=== PATIENT | female | born 1935 | race Caucasian/White ===

== ENCOUNTER 2020-11-13 12:50 | Outpatient (RCR) | payer MEDICARE, SELFPAY | END 2020-11-13 23:59 | LOC: IMMUN 12:50 | PROVIDERS: PCP Internal Medicine; Referring Provider Family Medicine; Visit Provider Family Medicine | DX: Z23 Encounter for immunization (principal) | CPT/HCPCS: 0011A; 0012A ==

== ENCOUNTER 2021-06-25 11:43 | Observation (INO) | payer MEDICARE, SELFPAY ==
[2021-06-25] VITALS (13 sets, daily range): BP systolic 108–181; BP diastolic 51–104; PULSE 58–99; RESP 16–18; TEMP 36.6–37.1; O2SAT 96–100; BMI 22.7; BMI 22.6
--- NOTE | 2021-06-25 12:06 | RAD_ITS ---
STUDY: X-RAY CHEST REASON FOR EXAM: Female, 85 years old. Syncope TECHNIQUE: Frontal view of the chest COMPARISON: None. FINDINGS: The lungs are clear. There are no pleural effusions. There is no pneumothorax. The heart is normal in size. The visualized osseous structures are within normal limits. RAD/Chest 1 View (Portable) IMPRESSION: No acute thoracic pathology. Electronically Signed: Sung Dunlap MD at 12:36 EDT Tel , Service support ,
--- NOTE | 2021-06-25 12:06 | EKG12_ITS ---
Test Reason : SYNCOPE Blood Pressure : / mmHG Vent. Rate : 065 BPM Atrial Rate : 065 BPM P-R Int : 156 ms QRS Dur : 144 ms QT Int : 462 ms P-R-T Axes : 077 -03 157 degrees QTc Int : 480 ms Sinus rhythm with Premature supraventricular complexes Left bundle branch block Abnormal ECG Confirmed by JOEL JULIAN, SHAKEEL ([id number]), assistant editor ARABELLA WEST ([id number]) on 06/29/2021 8:33:57 AM Referred By: BRIDGETT Confirmed By:NAIDA MALDONADO MD
--- NOTE | 2021-06-25 12:07 | EDS_ITS ---
HPI History of Present Illness Chief Complaint: Syncope Detail of Chief Complaint: Syncope this morning Informant: patient and family Narrative Narrative: Patient presents to the emergency department complaint of syncopal episode occurred this morning. Patient's son is with her and he witnessed the event this morning. Patient apparently was standing when she started feel like her knees were buckling and she fell against the wall and slid down to the ground. Son believes she may have been unconscious for a few seconds and then came to pretty quickly. Patient states that she is passed out 3 times in the last month. She complains of feeling dizzy oftentimes in the morning with standing. They called her primary care physician and they were given a be evaluated by somebody covering for her physician later today but then they blanca led back and told her to come to the ER to get evaluated. Patient denies any chest pain or shortness of breath. She denies recent illness. She denies headaches. She does have history of hypertension as well as history of IBS. Patient denies any blood in her stool or black tarry stools. Prior similar symptoms: Yes PFSH PFSH Medical History (Updated 06/25/21 @ 14:[address] Sam Harris, DO) HTN (hypertension) Hypothyroid Home Medications escitalopram oxalate 5 mg PO DAILY 06/25/21 [History Last Taken Unknown] labetalol 200 mg PO BID 06/25/21 [History Last Taken Unknown] levothyroxine [Synthroid] 75 mcg PO DAILY 06/25/21 [History Last Taken Unknown] pantoprazole 20 mg PO DAILY 06/25/21 [History Last Taken Unknown] spironolactone 25 mg PO DAILY 06/25/21 [History Last Taken Unknown] Allergy/AdvReac Type Severity Reaction Status Date / Time No Known Allergies Allergy Verified 06/25/21 11:45 Surgical History (Updated 06/25/21 @ 12:19 by Yoly Barajas) H/O partial thyroidectomy History of appendectomy History of cholecystectomy Social History Smoking Status: Never smoker ROS ROS ED ROS Narrative Syncope and dizziness Constitutional Constitutional ED: Reports systems reviewed and no addt'l complaints, except as documented; Denies body ache(s), change in weight or chills Eyes Eyes: Denies acute decrease in peripheral vision, change in vision, double vision or loss of vision ENT ENT ED: Reports none; Denies ear pain, lip swelling, loss taste/smell, neck pain, otalgia or sore throat Cardiovascular Cardiovascular: Reports none; Denies abdominal pain, chest pain with activity, leg edema, lightheadedness, palpitations, rapid heart rate or syncope Respiratory/Chest Respiratory/Chest: Reports none; Denies change in mental status, dry cough, dyspnea, hemoptysis, shortness of breath at rest or shortness of breath with exertion Gastrointestinal Gastrointestinal: Reports none; Denies abdominal pain, change in stool character, diarrhea, hematemesis, hematochezia, melena, rectal bleeding or vomiting Genitourinary Genitourinary ED: Reports none; Denies abdominal discomfort, anuria, dysuria, genital pain or polyuria Musculoskeletal Musculoskeletal: Reports none; Denies arthralgias, back pain, difficulty walking, extremity pain, muscle weakness or myalgias Integumentary Reports none; Denies abscess or rash Neurologic Neurologic: Reports none and other; Denies abnormal gait, confusion, focal weakness, frequent falls, headache(s), loss of vision, numbness, paresthesias, radicular pain, vertigo or weakness Psychiatric Psychiatric: Reports systems reviewed and no addt'l complaints, except as documented and none; Denies behavioral changes, confusion, difficulty concentrating, hallucinations, suicidal ideation, tactile hallucinations or visual hallucinations Endocrine Endocrinology: Denies none, cold intolerance, excessive sweating, fatigue or heat intolerance Hematologic/Lymphatic Hematologic/Lymphatic: Reports none; Denies anemia, easy bleeding or easy bruising Allergic/Immunologic Allergic/Immunologic ED: Denies as per HPI, none, lip swelling, mouth swelling, throat swelling, tongue swelling or hives EXAM Physical Exam Const Vital Signs: 06/25/21 11:43 06/25/21 12:18 06/25/21 12:54 Temperature 97.8 F Temperature Source Temporal Pulse Rate 59 L Pulse Rate [Lying] 65 Pulse Rate [Sitting] 65 Pulse Rate [Standing] 68 Respiratory Rate 16 Respiratory Effort Normal Non-Labored Respiratory Pattern Normal Blood Pressure 149/68 H Blood Pressure [Lying] 145/51 H Blood Pressure [Sitting] 141/54 H Blood Pressure [Standing] 108/82 H Blood Pressure Mean 95 Blood Pressure Mean [Lying] 82 Blood Pressure Mean [Sitting] 83 Blood Pressure Mean [Standing] 90 Pulse Ox 100 Oxygen Delivery Method Room Air 06/25/21 13:14 Temperature Temperature Source Pulse Rate 86 Pulse Rate [Lying] Pulse Rate [Sitting] Pulse Rate [Standing] Respiratory Rate 16 Respiratory Effort Respiratory Pattern Blood Pressure 108/82 H Blood Pressure [Lying] Blood Pressure [Sitting] Blood Pressure [Standing] Blood Pressure Mean 90 Blood Pressure Mean [Lying] Blood Pressure Mean [Sitting] Blood Pressure Mean [Standing] Pulse Ox Oxygen Delivery Method Positive well nourished and well developed General Appearance ED: well developed and NAD HEENT Reports TM's clear and moist mucous membranes normocephalic and atraumatic; Negative for trauma or tenderness Tympanic Membrane ED: Yes TM's clear Eyes PERRL and EOMs intact bilaterally General Eye ED: Negative for pale conjunctiva or scleral icterus Neck no lymphadenopathy, supple and no JVD General: Negative for tenderness Chest Wall inspection of chest normal and palpation of chest normal Chest: Negative for tenderness Resp normal respiratory effort and clear to auscultation bilaterally Effort and Inspection: Negative for respiratory distress or pain with movement Auscultation: Negative for rhonchi, wheezes or diminished lung sounds Cardio regular rate, regular rhythm, S1 normal heart sound, S2 normal heart sound and no murmurs Peripheral Pulses: pulses 2+ throughout GI normal to inspection, nondistended, normoactive bowel sounds, soft to palpation, non-tender, non-distended and no masses Back/Spine no CVA tenderness and no thoracic nor lumbar tenderness Extremity normal to inspection General Extremety ED: Negative for edema General Extremity: Negative for edema Neuro oriented x3, CN's II-XII intact bilaterally, no sensory deficits noted and gait normal Sensorium / Orientation: awake, alert, oriented to person, oriented to place and oriented to time Motor Exam: strength 5/5 throughout and strength abnormal Psych mental status grossly normal Skin no rashes or lesions noted and no wounds MDM MDM MDM Narrative Medical decision making narrative: Patient noted to have signs of UTI on exam. Urine culture will be sent. Patient was positive when orthostatic pressures were checked with a drop in her systolic of over 40 points. IV line established and patient was given normal saline. Case will be discussed with hospitalist evaluate patient for admission for diagnosis of orthostatic syncope and UTI Lab Data Attestation: I reviewed the patient's lab results. Labs: Laboratory Results - last 24 hr 06/25/21 06/25/21 06/25/21 12:00 12:00 13:11 WBC 11.7 H RBC 3.87 L Hgb 12.3 Hct 37.3 MCV 96.4 MCH 31.8 MCHC 33.0 RDW Std Deviation 47.4 H RDW Coeff of Shadia 13.3 Plt Count 254 MPV 10.2 Immature Gran % (Auto) 0.700 Neut % (Auto) 81.0 H Lymph % (Auto) 11.5 L [place] % (Auto) 6.0 Eos % (Auto) 0.4 Baso % (Auto) 0.4 Absolute Neuts (auto) 9.5 H Absolute Lymphs (auto) 1.34 Nucleated RBC % 0 Sodium 135 L Potassium 4.0 Chloride 100 Carbon Dioxide 30.0 Anion Gap 5 BUN 27 H Creatinine 1.10 H Estim Creat Clear Calc 28.73 Est GFR (MDRD) Af Amer 61 Est GFR (MDRD) Non-Af 50 L BUN/Creatinine Ratio 24.5 H Glucose 106 Calcium 9.7 Troponin I High Sens 13 Urine Color Yellow Urine Clarity Cloudy Urine pH 5.0 Ur Specific [place] 1.015 Urine Protein 15 H Urine Glucose (UA) Normal Urine Ketones Negative Urine Occult Blood 10 H Urine Nitrite Positive H Urine Bilirubin Negative Urine Urobilinogen Normal Ur Leukocyte Esterase 500 H Urine RBC 0-5 SEEN Urine WBC 10-25 SEEN Ur Squamous Epith Cells 0-5 SEEN Urine Bacteria 4+ Urine Mucus 0 SEEN Radiography Diagnostic Testing: Radiology Impression Chest X-Ray 06/25/21 12:06 IMPRESSION: No acute thoracic pathology. Electronically Signed: Sung Dunlap MD at 12:36 EDT Tel , Service support , EKG Initial EKG: Attestation: I personally reviewed and interpreted this EKG as follows: Comments: Sinus rhythm with a ventricular rate of 65 bpm with a left bundle branch block and occasional PACs. Discharge Plan Triage Chief Complaint: Syncope ED Provider: Sam Harris Dx/Rx/DC Orders Clinical Impression: Syncope, Acute UTI Prescriptions: No Action labetalol 200 mg tablet 200 mg PO BID RF: 0 spironolactone 25 mg tablet 25 mg PO DAILY RF: 0 pantoprazole 20 mg tablet,delayed release (DR/EC) 20 mg PO DAILY RF: 0 levothyroxine [Synthroid] 75 mcg tablet 75 mcg PO DAILY RF: 0 escitalopram oxalate 5 mg tablet 5 mg PO DAILY RF: 0 Primary Care Provider: Deanna Good Referrals: Deanna Good MD [Primary Care Provider] - Disposition Disposition: Acute Care Hospital [facility]
[2021-06-25 12:13] LABS: Absolute Lymphocyte Count 1.34 X10^3/uL (0.83-4.51); Absolute Neutrophil Count 9.5 X10^3/uL (2.0-7.7); Basophil# 0.05 X10^3/uL; Basophil% 0.4 % (0-1); Eosinophil# 0.05 X10^3/uL; Eosinophils% 0.4 % (0-5); Hematocrit 37.3 % (37-47); Hemoglobin 12.3 g/dL (12.0-15.0); Lymphocyte # 1.34 X10^3/ul (0.83-4.51); Lymphocyte % 11.5 % (19-41); Mean Corpuscular Hgb 31.8 pg (27.0-32.0); Mean Corpuscular Volume 96.4 fL (81-99); Mean Platelet Vol. 10.2 fl (6.2-12.0); NRBC Flagged by Analyzer 0 % (0-5); Neutrophil # 9.46 X10^3/uL (2.7-7.7); Platelet Count 254 K/mm3 (150-450); RBC Distribution Width CV 13.3 % (11.6-14.6); RBC Distribution Width SD 47.4 fl (35.1-43.9); Red Blood Count 3.87 M/mm3 (4.2-5.4); White Blood Count 11.7 K/mm3 (4.4-11.0)
[2021-06-25 12:39] LABS: Anion Gap 5 (5-15); BUN 27 mg/dL (7-18); BUN/Creat Ratio 24.5 RATIO (10-20); Calcium,Total 9.7 mg/dL (8.5-10.1); Chloride 100 mmol/L (98-107); EST Glomerular Filtration Rate 50 mL/min (>60); Est Glom Filt Rate - Afr Amer 61 mL/min (>60); Estimated Creatinine Clearance 28.73 ml/min; Glucose 106 mg/dL (74-106); Sodium Level 135 mmol/L (136-145); Troponin-I HS 13 pg/mL (3.0-54.0)
[2021-06-25] MEDS: 0.9% Normal Saline 1,000 ML 150 ML IV ×3 (13:14→21:00)
[2021-06-25 13:18] LABS: Color, Urine Yellow (Yellow); Glucose, Dipstick Normal (Normal); Ketone-Dipstick Negative (Negative); Leukocyte Esterase-Dipstick 500 /ul (Negative); Mucous, Urine 0 SEEN /hpf (<or=2+); Nitrite-Dipstick Positive (Negative); Occult Blood-Urine 10 /ul (Negative); Protein-Dipstick 15 mg/dl (Negative); Specific Gravity, Urine 1.015 (1.002-1.030); Urine Bilirubin Dipstick Negative (Negative); Urine Clarity Cloudy (Clear); Urine Urobilinogen Normal (Normal)
[2021-06-25 13:25] LABS: Bacteria 4+ /hpf (None Seen); Red Blood Cells-Urine 0-5 SEEN /hpf (0-5); Squamous Epithelial Cells - UA 0-5 SEEN /hpf (5-10); White Blood Cells 10-25 SEEN /hpf (0-5)
[2021-06-25] MEDS: Ceftriaxone 1 GM/50 ML BAG IV (14:51)
--- NOTE | 2021-06-25 14:52 | HP.PCM.HOS_ITS ---
HPI - General HPI Narrative CHARBEL DELVALLE, is a 85 F who presented to the emergency department [facility] on 06/25/2021 with the chief complaint of syncope. She presents to the emergency department with her son. He evidently witnessed the event this morning. She was apparently standing when she started to feel like her knees were buckling and fell against the wall and slid down to the ground. The son believes that she may have been unconscious for a few seconds and then came to back to her baseline fairly quickly. She states she has irritable bowel syndrome and did feel as if a bowel movement was coming on when this event occurred. She has had significant weight loss in the past year and has had an extensive GI work-up including scopes and no etiology for this has been found at this time. She was recently started on Lexapro as there was some concern that maybe her anxiety was contributing to her decreased p.o. intake and weight loss. She has been having lightheadedness on and off at least 3 times per week for approximately the past month. She follows with career education teacher and [facility] but has not mentioned this to them. Her last cardiology follow-up was approximately 2 months ago when she was having no symptoms. The only medication change that has been recently made is the addition of the escitalopram. She currently is feeling well. She does have issues with urinary incontinence and has having issues opening containers for water. They do have food brought to her house. She denies any concurrent symptoms when she had her episode today including chest pain, diaphoresis, nausea/vomiting or shortness of breath. She currently is back to baseline and feels well. She was orthostatic positive in the emergency department from sitting to standing with regards to her blood pressure. Her vital signs were overall unremarkable. Her CBC shows a mild leukocytosis with a white count of 11.7 and a left shift but is otherwise within normal limits. Her BMP shows mild hyponatremia with a sodium of 135, slightly elevated BUN and creatinine at 27 and 1.10 respectively (baseline is unclear), a high-sensitivity troponin was obtained and was normal. Her EKG shows a chronic left bundle branch block but no ST-T wave changes. Her UA is suspicious for a UTI with positive nitrites, leuk esterase, white cells and 4+ bacteria. She was initiated on IV fluids and ceftriaxone in the emergency department after urine culture was sent and request for admission was made. She will be admitted to [facility] for further work-up. [facility] Medical History (Updated 06/25/21 @ 15:[address] Mouna Cano DO) Anxiety HTN (hypertension) Hypothyroid Home Medications escitalopram oxalate 5 mg PO DAILY 06/25/21 [History Last Taken Unknown] labetalol 200 mg PO BID 06/25/21 [History Last Taken Unknown] levothyroxine [Synthroid] 75 mcg PO DAILY 06/25/21 [History Last Taken Unknown] pantoprazole 20 mg PO DAILY 06/25/21 [History Last Taken Unknown] spironolactone 25 mg PO DAILY 06/25/21 [History Last Taken Unknown] Allergy/AdvReac Type Severity Reaction Status Date / Time No Known Allergies Allergy Verified 06/25/21 11:45 Family History (Updated 06/25/21 @ 14:[address] Mouna Cano DO) Other Heart disease Hypertension Surgical History H/O partial thyroidectomy History of appendectomy History of cholecystectomy Social History Smoking Status: Never smoker ROS Constitutional Constitutional: Reports anorexia and change in weight; Denies chills, fatigue, fever(s), malaise, night sweats, weakness or other Eyes Eyes: Denies blurry vision, change in eye color, change in vision, discharge f rom eye(s), double vision, erythema, eye pain, loss of vision or other ENT HEENT: Denies abnormal hearing, dysphagia, ear pain, epistaxis, headache(s), hearing loss, nasal congestion, nasal discharge, post nasal drip, sinus pre ssure, sore throat or other Cardiovascular Cardiovascular: Reports lightheadedness and syncope; Denies chest pain, claudication, dyspnea on exertion, edema, orthopnea, palpitations, paroxysmal nocturnal dyspnea, rapid heart rate or other Respiratory/Chest Respiratory/Chest: Denies cough, dyspnea, excessive phlegm production, hem optysis, productive cough, shortness of breath at rest, shortness of breath with exertion, wheezing or other Gastrointestinal Gastrointestinal: Reports abdominal pain, constipation and diarrhea; Denies c [place] ground emesis, dyspepsia, hematemesis, hematochezia, loose stools, melena, nausea, vomiting or other Genitourinary Genitourinary: Reports urinary frequency, urinary incontinence and urinary urgency; Denies burning urination, difficulty urinating, dysuria, hematuria, nocturia, urinary hesitancy or other Musculoskeletal Musculoskeletal: Denies arthralgias, back pain, joint pain, joint stiffness, joint swelling, myalgias, neck pain or other Neurologic Neurologic: Reports syncope; Denies abnormal gait, abnormal speech, confusion, disequilibrium, dizziness, focal weakness, headache(s), numbness, paresthesias, seizure-like activity, seizures, tingling, tremor(s) or other Psychiatric Psychiatric: Reports anxiety; Denies depression, homicidal ideation, suicidal ideation or other Endocrine Endocrinology: Denies change in body appearance, cold intolerance, excessive sweating, heat intolerance, polydipsia, polyuria or other Hematologic/Lymphatic Hematologic/Lymphatic: Denies anemia, easy bleeding, easy bruising, lymphadenopathy or other Allergic/Immunologic Allergic/Immunologic: Denies rhinitis, hives, eczemia, asthma or other Vital Signs Vital Signs Vital Signs: 06/25/21 11:43 06/25/21 12:18 06/25/21 12:54 Temperature 97.8 F Temperature Source Temporal Pulse Rate 59 L Pulse Rate [Lying] 65 Pulse Rate [Sitting] 65 Pulse Rate [Standing] 68 Respiratory Rate 16 Respiratory Effort Normal Non-Labored Respiratory Pattern Normal Blood Pressure 149/68 H Blood Pressure [Lying] 145/51 H Blood Pressure [Sitting] 141/54 H Blood Pressure [Standing] 108/82 H Blood Pressure Mean 95 Blood Pressure Mean [Lying] 82 Blood Pressure Mean [Sitting] 83 Blood Pressure Mean [Standing] 90 Pulse Ox 100 Oxygen Delivery Method Room Air 06/25/21 13:14 Temperature Temperature Source Pulse Rate 86 Pulse Rate [Lying] Pulse Rate [Sitting] Pulse Rate [Standing] Respiratory Rate 16 Respiratory Effort Respiratory Pattern Blood Pressure 108/82 H Blood Pressure [Lying] Blood Pressure [Sitting] Blood Pressure [Standing] Blood Pressure Mean 90 Blood Pressure Mean [Lying] Blood Pressure Mean [Sitting] Blood Pressure Mean [Standing] Pulse Ox Oxygen Delivery Method Weight Weight: 54.6 kg Body Mass Index (BMI) 22.7 Physical Exam Const alert, oriented x3, no apparent distress and average body habitus Constitutional Narrative: Thin elderly white female sitting up in bed, son at bedside, patient nontoxic, no acute distress, seems in good spirits and appropriately interactive General Appearance: cooperative HEENT normocephalic, head/scalp atraumatic, moist oral mucous membranes and oropharynx normal; Negative for dentition normal HEENT Narrative: Moderately [place], no thrush, Mallampati 2, dentures in place Mouth: oral and palatal mucosa normal Eyes PERRL, EOMs intact bilaterally and conjunctivae normal Eyes Narrative: No scleral icterus or injection Neck no lymphadenopathy, supple, no JVD and no carotid bruits Neck Narrative: Trachea midline no thyroid enlargement Resp normal respiratory effort, no retractions, no use of accessory muscles and clear to auscultation bilaterally Auscultation: Negative for crackles, rales, rhonchi or wheezes Cardio regular rate, regular rhythm, S1 normal heart sound, S2 normal heart sound, no murmurs, no rub, no gallops, no clicks and no JVD GI normal to inspection, nondistended, normoactive bowel sounds, soft to palpation, non-tender and non-distended; Negative for hepatosplenomegaly Extremity no clubbing, cyanosis or edema Extremity Narrative: Arthritic changes noted at joints Peripheral Pulses: Yes pulses 2+ throughout Skin no rashes or lesions noted, no wounds, skin turgor normal, no jaundice, no petechiae and no mottling Neuro oriented x3, CN's II-XII intact bilaterally, moves all extremities and no focal motor deficits Neuro Narrative: Mild generalized weakness, reflexes 2+ upper and lower extremity bilaterally Sensorium / Orientation: alert, oriented to person, oriented to place and oriented to time Speech: speech normal Psych affect normal Results Lab / Micro Data Attestation: I reviewed the patient's lab results. Result Diagrams: 06/25/21 12:00 06/25/21 12:00 Labs: Laboratory Results - last 24 hr 06/25/21 12:00: WBC 11.7 H, RBC 3.87 L, Hgb 12.3, Hct 37.3, MCV 96.4, MCH 31.8, MCHC 33.0, RDW Std Deviation 47.4 H, RDW Coeff of Shadia 13.3, Plt Count 254, MPV 10.2, Immature Gran % (Auto) 0.700, Neut % (Auto) 81.0 H, Lymph % (Auto) 11.5 L, [place] % (Auto) 6.0, Eos % (Auto) 0.4, Baso % (Auto) 0.4, Absolute Neuts (auto) 9.5 H, Absolute Lymphs (auto) 1.34, Nucleated RBC % 0 06/25/21 12:00: Sodium 135 L, Potassium 4.0, Chloride 100, Carbon Dioxide 30.0, Anion Gap 5, BUN 27 H, Creatinine 1.10 H, Estim Creat Clear Calc 28.73, Est GFR (MDRD) Af Amer 61, Est GFR (MDRD) Non-Af 50 L, BUN/Creatinine Ratio 24.5 H, Glucose 106, Calcium 9.7, Troponin I High Sens 13 06/25/21 13:11: Urine Color Yellow, Urine Clarity Cloudy, Urine pH 5.0, Ur Specific [place] 1.015, Urine Protein 15 H, Urine Glucose (UA) Normal, Urine Ketones Negative, Urine Occult Blood 10 H, Urine Nitrite Positive H, Urine Bilirubin Negative, Urine Urobilinogen Normal, Ur Leukocyte Esterase 500 H, Urine RBC 0-5 SEEN, Urine WBC 10-25 SEEN, Ur Squamous Epith Cells 0-5 SEEN, Urine Bacteria 4+, Urine Mucus 0 SEEN Radiology Impression Chest X-Ray 06/25/21 12:06 IMPRESSION: No acute thoracic pathology. Electronically Signed: Sung Dunlap MD at 12:36 EDT Tel , Service support , Assessment & Plan Assessment/Plan (1) Syncope: (2) Acute UTI: (3) JUS (acute kidney injury): (4) Dehydration: (5) Hyponatremia: PLAN: Acute syncope -Patient has been experiencing lightheadedness and has had falls but is unclear if her previous falls were associated with syncopal episodes as they were not witnessed -Continue telemetry -Cycle cardiac enzymes -Check carotid Dopplers -No bruit on exam -Check echocardiogram -Check TSH -IV fluids -We will hold antihypertensives at this time -Repeat a.m. orthostatic vitals--> positive on admission from sitting to standing Acute urinary tract infection -UA is suspicious for UTI -Culture pending -Ceftriaxone started in the emergency department will continue on the medical floor -Patient does follow with urology as an outpatient for prolapsed bladder Mild hyponatremia -Suspect hypovolemic hyponatremia -Repeat in a.m. -Should respond to IV fluids JUS -Baseline creatinine is unknown at this time -Repeat BMP in a.m. -IV fluids Suspected severe malnutrition -Consult dietitian -Patient has had extensive GI work-up with no etiology found to explain weight loss at this time -Recently started on antidepressant -Could consider utilization of Remeron with Lexapro -Ensure 4 times daily-chocolate IBS -As needed Bentyl -Follow-up with outpatient GI -Patient follows in [place] Hypertension -Hold antihypertensives with labile blood pressures -As needed labetalol available -Trend blood pressures Hypothyroidism -Check TSH -Continue Synthroid Depression/anxiety -Continue home Lexapro DVT prophylaxis -Lovenox -SCDs CODE STATUS -Full code after discussion with patient and son in the emergency department Charges/Coding Visit Charges Inpatient E&M: 28553 Init Hosp L3
--- NOTE | 2021-06-25 15:28 | ECHOD_ITS ---
Reason For Study: SYNCOPE/NEAR SYNCOPE Procedure This was a 2D Doppler, Color Flow transthoracic echocardiogram. The study was technically difficult. Exam performed in department. Left Ventricle Normal LV size. The estimated ejection fraction is 55 %. Unable to assess diastolic dysfunction. Right Ventricle Normal RV size. Normal systolic function. Atria The left atrium is mildly enlarged. Normal right atrium. No doppler evidence for ASD. Mitral Valve There is moderate to severe mitral annular calcification. There is no mitral valve stenosis. No mitral valve insufficiency. Tricuspid Valve There is no tricuspid stenosis. No tricuspid valve insufficiency. Unable to estimate RV systolic pressure due to insufficient tricuspid regurgitant envelope. Aortic Valve Trisinus/trileaflet aortic valve. There is no aortic stenosis. Trivial aortic valve insufficiency. Pulmonic Valve There is no pulmonic valvular stenosis. No pulmonic valve insufficiency. Great Vessels Normal aortic root. Pericardium/Pleural No pericardial effusion. MMode/2D Measurements & Calculations LVIDd: 5.0 cm IVSd: 1.1 cm Ao root diam: 3.3 cm LVIDs: 3.9 cm LVPWd: 1.1 cm RVDd: 3.2 cm FS: 22.0 % LAV(MOD-bp): 57.2 ml LA A4 area: 17.5 cm2 LA dimension(2D): 3.3 cm LAV(MOD-bp) Indexed: 37.6 ml/m2 LAV(MOD-sp2): 53.1 ml LAV(MOD-sp4): 53.1 ml RA A4 area: 15.8 cm2 Time Measurements MV dec time: 0.23 sec Doppler Measurements & Calculations MV E max kushal: 73.2 cm/sec Lat Peak E' Kushal: 5.8 cm/sec Med Peak E' Kushal: 3.8 cm/sec MV A max kushal: 123.3 cm/sec E/E' lat: 12.6 E/E' med: 19.2 MV E/A: 0.59 Ao V2 max: 137.7 cm/sec LV V1 max: 120.4 cm/sec PA V2 max: 125.8 cm/sec Ao max P.6 mmHg LV V1 max P.8 mmHg ECHO/Echo Complete Interpretation Summary The estimated ejection fraction is 55 %. Unable to assess diastolic dysfunction. The left atrium is mildly enlarged. Trivial aortic valve insufficiency. Ordering Physician: Mouna Cnao Referring Physician: Deanna Good Performed By: Leila Rodriguez RDCS, RVT
[2021-06-25 16:30] LABS: Troponin-I HS 13 pg/mL (3.0-54.0)
[2021-06-25] MEDS: Labetalol (Prefilled) 20 MG/4 ML IV (18:49)
[2021-06-25 20:27] LABS: Troponin-I HS 27 pg/mL (3.0-54.0)
--- NOTE | 2021-06-25 20:45 | PCS.PANDOC ---
PANDEMIC DOCUMENTATION INITIATED: Date: 06/07/2021 Time: 190
[2021-06-25] MEDS: Sucralfate 1 GM Tablet PO (20:57)
[2021-06-25] MEDS: Dicyclomine 10 MG Capsule PO (21:09)
[2021-06-25] MEDS: MELATONIN 3 MG TABLET PO (21:09)
[2021-06-26] VITALS (13 sets, daily range): BP systolic 164–187; BP diastolic 65–78; PULSE 61–82; RESP 16; TEMP 36.3–36.8; O2SAT 97–99
[2021-06-26] MEDS: 0.9% Normal Saline 1,000 ML 150 ML IV (03:28)
[2021-06-26] MEDS: Labetalol (Prefilled) 20 MG/4 ML IV ×2 (03:43→21:02)
[2021-06-26] MEDS: Levothyroxine 75 MCG Tablet PO (05:26)
[2021-06-26 06:17] LABS: Absolute Lymphocyte Count 1.65 X10^3/uL (0.83-4.51); Absolute Neutrophil Count 5.6 X10^3/uL (2.0-7.7); Basophil# 0.04 X10^3/uL; Basophil% 0.5 % (0-1); Eosinophils% 1.2 % (0-5); Hematocrit 32.7 % (37-47); Hemoglobin 10.8 g/dL (12.0-15.0); Lymphocyte # 1.65 X10^3/ul (0.83-4.51); Lymphocyte % 19.8 % (19-41); Mean Corpuscular Hgb 31.8 pg (27.0-32.0); Mean Corpuscular Volume 96.2 fL (81-99); Mean Platelet Vol. 10.3 fl (6.2-12.0); Monocyte# 0.94 X10^3/uL; Monocyte% 11.3 % (0-10); NRBC Flagged by Analyzer 0 % (0-5); Neutrophil # 5.58 X10^3/uL (2.7-7.7); Neutrophil % 66.8 % (47-70); Platelet Count 202 K/mm3 (150-450); RBC Distribution Width CV 13.4 % (11.6-14.6); RBC Distribution Width SD 47.4 fl (35.1-43.9); White Blood Count 8.3 K/mm3 (4.4-11.0)
[2021-06-26 08:14] LABS: AST(SGOT) 12 U/L (15-37); Alanine Aminotransfer ALT/SGPT 18 U/L (13-56); Albumin, Serum 2.5 g/dL (3.2-5.0); Alkaline Phosphatase 47 U/L (45-117); Anion Gap 3 (5-15); BUN 19 mg/dL (7-18); Calcium,Total 8.8 mg/dL (8.5-10.1); Chloride 108 mmol/L (98-107); Creatinine, Serum 0.76 mg/dL (0.55-1.02); EST Glomerular Filtration Rate 77 mL/min (>60); Est Glom Filt Rate - Afr Amer 93 mL/min (>60); Globulin 2.6 g/dL (2.2-4.2); Glucose 98 mg/dL (74-106); Magnesium 1.5 mg/dL (1.6-2.6); Phosphorus 2.9 mg/dL (2.5-4.9); Potassium 3.8 mmol/L (3.5-5.1); Protein, Total 5.1 g/dL (6.4-8.2); Sodium Level 137 mmol/L (136-145); Thyroid Stim Hormone (TSH) 1.04 uIU/mL (0.358-3.74)
[2021-06-26] MEDS: Ceftriaxone 1 GM/50 ML BAG IV (10:20)
[2021-06-26] MEDS: Escitalopram Oxalate 10 MG Tablet 5 MG PO (10:36)
[2021-06-26] MEDS: Enoxaparin 30 MG/0.3 ML Syringe SC (10:36)
[2021-06-26] MEDS: Pantoprazole Sodium 20 MG Tablet PO (10:38)
[2021-06-26] MEDS: Magnesium Chloride 64 MG Delay Rel.Tablet 128 MG PO (10:43)
--- NOTE | 2021-06-26 11:30 | CASEMGMT ---
IRENE MAY Face to Face with patient for initial transition planning/care coordination assessment. RN CM introduced self and role at [facility]. Patient lying in bed, alert and oriented, son at bedside. Patient willing to participate in assessment and is able to answer all questions appropriately. Care providers, pharmacy, and demographics verified. Patient wishes to discharge home and agreeable to HHC at discharge. Patient provided with list of [facility] agencies to review. Patient states he has no further needs or concerns at this time. CM to follow for discharge planning needs that may arise. PCP: Latisha Specialists:SIGIFREDO Alvarado; Tiana, scaffold worker; Wade, DRIFT MINER Preferred Pharmacy: [facility] Insurance: [employer] Prescription Benefit: yes Living Will/HPOA: monika Riley HPOA LNOK: monica Living Arrangements: Patient lives alone in a 2 story home. Patient states she is independent and able to ambulate the stairs. Transportation: self/son DME/HHC: Patient states she has medical alert and grab bars at home. Patient refuses walker at discharge. Patient also provided list of private duty aides. Disposition Plan: Patient to discharge home with HHC, family support, and follow-up plans in place. Yoly ESPOSITO, RN, CM
--- NOTE | 2021-06-26 11:37 | PN.HOSP_ITS ---
Documented by User: Tremayne OCONNOR 06/26/21 11:59 Subjective Subjective Patient is an 85-year-old female comfortably resting in bed, alert and orient x3. Patient reports some left lower quadrant abdominal pain, however denies any chest pain, shortness of breath or further syncopal episodes since admission. Objective Data Objective Data Vital Signs: Vital Signs Temp Pulse Resp BP Pulse Ox 97.3 F L 82 16 186/68 H 98 06/26/21 09:51 06/26/21 09:51 06/26/21 09:51 06/26/21 09:51 06/26/21 09:51 Oxygen Delivery Method Room Air Weight: 119 lb 11.376 oz Body Mass Index (BMI) 22.6 Intake & Output: Intake and Output for Last 24 Hours 06/24/21 06/25/21 06/26/21 23:59 23:59 23:59 Intake Total 1515 / 1515 2135 / 2135 Balance 1515 / 1515 2135 / 2135 Lab / Micro Data Result Diagrams: 06/26/21 06:03 06/26/21 06:03 Labs: Laboratory Results - last 24 hr 06/25/21 12:00: WBC 11.7 H, RBC 3.87 L, Hgb 12.3, Hct 37.3, MCV 96.4, MCH 31.8, MCHC 33.0, RDW Std Deviation 47.4 H, RDW Coeff of Shadia 13.3, Plt Count 254, MPV 10.2, Immature Gran % (Auto) 0.700, Neut % (Auto) 81.0 H, Lymph % (Auto) 11.5 L, [place] % (Auto) 6.0, Eos % (Auto) 0.4, Baso % (Auto) 0.4, Absolute Neuts (auto) 9.5 H, Absolute Lymphs (auto) 1.34, Nucleated RBC % 0 06/25/21 12:00: Sodium 135 L, Potassium 4.0, Chloride 100, Carbon Dioxide 30.0, Anion Gap 5, BUN 27 H, Creatinine 1.10 H, Estim Creat Clear Calc 28.73, Est GFR (MDRD) Af Amer 61, Est GFR (MDRD) Non-Af 50 L, BUN/Creatinine Ratio 24.5 H, Glucose 106, Calcium 9.7, Troponin I High Sens 13 06/25/21 13:11: Urine Color Yellow, Urine Clarity Cloudy, Urine pH 5.0, Ur Specific [place] 1.015, Urine Protein 15 H, Urine Glucose (UA) Normal, Urine Ketones Negative, Urine Occult Blood 10 H, Urine Nitrite Positive H, Urine Bilirubin Negative, Urine Urobilinogen Normal, Ur Leukocyte Esterase 500 H, Urine RBC 0-5 SEEN, Urine WBC 10-25 SEEN, Ur Squamous Epith Cells 0-5 SEEN, Urine Bacteria 4+, Urine Mucus 0 SEEN 06/25/21 15:54: Troponin I High Sens 13 06/25/21 20:02: Troponin I High Sens 27 06/26/21 06:03: WBC 8.3, RBC 3.40 L, Hgb 10.8 L, Hct 32.7 L, MCV 96.2, MCH 31.8, MCHC 33.0, RDW Std Deviation 47.4 H, RDW Coeff of Shadia 13.4, Plt Count 202, MPV 10.3, Immature Gran % (Auto) 0.400, Neut % (Auto) 66.8, Lymph % (Auto) 19.8, [place] % (Auto) 11.3 H, Eos % (Auto) 1.2, Baso % (Auto) 0.5, Absolute Neuts (auto) 5.6, Absolute Lymphs (auto) 1.65, Nucleated RBC % 0 06/26/21 06:03: Sodium 137, Potassium 3.8, Chloride 108 H, Carbon Dioxide 26.0, Anion Gap 3 L, BUN 19 H, Creatinine 0.76, Estim Creat Clear Calc 31.60, Est GFR (MDRD) Af Amer 93, Est GFR (MDRD) Non-Af 77, BUN/Creatinine Ratio 25.0 H, Glucose 98, Calcium 8.8, Phosphorus 2.9, Magnesium 1.5 L, Total Bilirubin 0.50, AST 12 L, ALT 18, Alkaline Phosphatase 47, Total Protein 5.1 L, Albumin 2.5 L, Globulin 2.6, Albumin/Globulin Ratio 1.0, TSH 1.04 Radiography Diagnostic Testing: Radiology Impression Chest X-Ray 06/25/21 12:06 IMPRESSION: No acute thoracic pathology. Electronically Signed: Sung Dunlap MD at 12:36 EDT Tel , Service support , Physical Exam Const alert, oriented x3 and no apparent distress HEENT head/scalp atraumatic and moist oral mucous membranes Head and Scalp: normocephalic Eyes PERRL, EOMs intact bilaterally and conjunctivae normal Neck no lymphadenopathy, supple and no JVD Resp normal respiratory effort, no retractions, no use of accessory muscles and clear to auscultation bilaterally Cardio regular rate, regular rhythm, no murmurs and no JVD GI soft to palpation GI Narrative: Pain to palpation about the left lower abdominal quadrant Extremity normal to inspection, full ROM and no clubbing, cyanosis or edema Skin no rashes or lesions noted, no wounds, skin turgor normal and no jaundice Neuro CN's II-XII intact bilaterally Psych affect normal Assessment & Plan Assessment/Plan (1) Acute UTI: (2) Syncope: (3) JUS (acute kidney injury): PLAN: Day 2 Discharge planning: Patient likely to discharge home, case management and social work following. 1) acute cystitis Abnormal UA on admission with positive nitrites, leukocyte esterase and 4+ bacteria. Currently vital signs are stable and patient is afebrile. There is no white count currently. Plan; continue ceftriaxone, Urine culture obtained on admission and is pending, 2) syncope TSH and high-sensitivity troponins are within normal limits. Magnesium is low at 1.5. Echocardiogram and carotid Doppler ordered/pending. Plan; remain admitted to PCU for cardiac telemetry monitoring. 3) hyponatremia Resolved, currently 137. Likely due to dehydration prior to admission. Continue to monitor BMP. 4) JUS Resolved, currently 0.7. Likely due to dehydration prior to admission. Continue monitor BMP. 5) suspected severe malnutrition Dietitian consult ordered. Recently started Lexapro and escitalopram. Continue Ensure 4 times daily. 6) IBS Follows with outpatient GI clinic. Continue Bentyl. 7) Hypertension Home BP regimen continued, labetalol as needed. 8) hypothyroidism TSH within normal limits, continue Synthroid. 9) depression/anxiety Continue home Lexapro DVT prophylaxis - Lovenox Patient seen by Tremayne Winn PA-C, under the supervision of Dr. Anne. Documented by User: Dr. Debi Anne MD 06/26/21 14:57 Objective Data Lab / Micro Data Result Diagrams: 06/26/21 06:03 06/26/21 06:03 Charges/Coding Addendum Addendum: This patient was seen in conjunction with ANASTASIA Rasheed. I have independently interviewed and examined the patient and reviewed pertinent historical, laboratory, and other data. Please refer to ANASTASIA Rasheed's note for his patient's presentation, findings, and recommendations. I have reviewed and his note and concur with his documentation Patient was seen and examined. Admitted with syncope. Orthostatic vitals this morning were negative. Physical Exam: Gen: Comfortable, not pale, not jaundiced CVS:HS I +II, regular, no murmurs RESP: Diminished at lung bases GI: BS present and normal, soft, nontender, no palpable organs EXT:No edema Assessment 1. Syncope 2. Recurrent falls 3. Orthostatic hypotension 4. Acute UTI 5. Anxiety disorder 6. Hypothyroidism Plan: Will continue on IV ceftriaxone for UTI Follow-up on urine culture Controlled blood pressure meds Continue rest of home medications Visit Charges Inpatient E&M: 16001 Subs Hosp L3
[2021-06-26] MEDS: Losartan Potassium 50 MG Tablet PO ×2 (12:45)
[2021-06-26] MEDS: Labetalol 200 MG Tablet PO (12:46)
--- NOTE | 2021-06-26 14:00 | CASEMGMT ---
IRENE MAY followed up with patient and son regarding HHC. [facility], [facility]. RN YADIRA will send referral to [facility]. IRENE MAY explained to patient and son that CM may not be able to setup HHC till Monday after the holiday weekend. IRENE MAY instructed patient and family that should patient be ready for discharge, CM will still continue to setup HHC on Monday. Patient and son voiced understanding.
[2021-06-26] MEDS: Acetaminophen 325 MG Tablet 650 MG PO (15:28)
[2021-06-26] MEDS: Sucralfate 1 GM Tablet PO (21:02)
[2021-06-26] MEDS: 0.9% Saline Lock 10 ML Syringe IV (21:02)
[2021-06-26] MEDS: MELATONIN 3 MG TABLET PO (21:02)
[2021-06-27] VITALS (7 sets, daily range): BP systolic 121–165; BP diastolic 60–99; PULSE 58–72; RESP 16–18; TEMP 36.4–36.9; O2SAT 96–97
[2021-06-27] MEDS: Levothyroxine 75 MCG Tablet PO (05:58)
[2021-06-27 06:35] LABS: Absolute Lymphocyte Count 1.92 X10^3/uL (0.83-4.51); Absolute Neutrophil Count 4.2 X10^3/uL (2.0-7.7); Basophil# 0.05 X10^3/uL; Basophil% 0.7 % (0-1); Eosinophil# 0.15 X10^3/uL; Eosinophils% 2.1 % (0-5); Hematocrit 32.6 % (37-47); Hemoglobin 10.9 g/dL (12.0-15.0); Lymphocyte # 1.92 X10^3/ul (0.83-4.51); Lymphocyte % 26.9 % (19-41); Mean Corp Hgb Conc 33.4 g/dL (32-36); Mean Corpuscular Hgb 31.5 pg (27.0-32.0); Mean Corpuscular Volume 94.2 fL (81-99); Monocyte% 11.2 % (0-10); NRBC Flagged by Analyzer 0 % (0-5); Neutrophil # 4.21 X10^3/uL (2.7-7.7); Neutrophil % 58.8 % (47-70); Platelet Count 203 K/mm3 (150-450); RBC Distribution Width CV 13.3 % (11.6-14.6); Red Blood Count 3.46 M/mm3 (4.2-5.4); White Blood Count 7.2 K/mm3 (4.4-11.0)
[2021-06-27 07:09] LABS: Anion Gap 4 (5-15); BUN 13 mg/dL (7-18); BUN/Creat Ratio 17.7 RATIO (10-20); Calcium,Total 9.2 mg/dL (8.5-10.1); Chloride 104 mmol/L (98-107); Creatinine, Serum 0.74 mg/dL (0.55-1.02); EST Glomerular Filtration Rate 80 mL/min (>60); Est Glom Filt Rate - Afr Amer 97 mL/min (>60); Glucose 85 mg/dL (74-106); Potassium 3.6 mmol/L (3.5-5.1); Sodium Level 135 mmol/L (136-145)
[2021-06-27] MEDS: Enoxaparin 30 MG/0.3 ML Syringe SC (08:15)
[2021-06-27] MEDS: Pantoprazole Sodium 20 MG Tablet PO (08:15)
[2021-06-27] MEDS: Acetaminophen 325 MG Tablet 650 MG PO (08:16)
[2021-06-27 09:45] LABS: Magnesium 1.5 mg/dL (1.6-2.6)
[2021-06-27] MEDS: Losartan Potassium 50 MG Tablet PO (09:47)
[2021-06-27] MEDS: Labetalol 200 MG Tablet PO (09:47)
[2021-06-27] MEDS: Ceftriaxone 1 GM/50 ML BAG IV (09:47)
[2021-06-27] MEDS: Spironolactone 25 MG Tablet PO (09:47)
--- NOTE | 2021-06-27 10:52 | NURSING ---
pts son at bedside this am and in talking with reported that pt has had some confustion at night before and upon awakening
--- NOTE | 2021-06-27 11:49 | PN.HOSP_ITS ---
Documented by User: Tremayne OCONNOR 06/27/21 12:02 Subjective Subjective Patient is an 85-year-old female comfortably resting in bed, alert and orient x3. Patient did have some episodes of confusion earlier this morning, however patient relates this to poor sleep while admitted. Denies chest pain, shortness of breath, palpitations, hemoptysis, sputum production, fever, chills, N/V/D. Objective Data Objective Data Vital Signs: Vital Signs Temp Pulse Resp BP Pulse Ox 98.1 F 72 16 165/60 H 97 06/27/21 08:00 06/27/21 08:00 06/27/21 08:00 06/27/21 08:00 06/27/21 08:00 Oxygen Delivery Method Room Air Weight: 119 lb 11.376 oz Body Mass Index (BMI) 22.6 Intake & Output: Intake and Output for Last 24 Hours 06/25/21 06/26/21 06/27/21 23:59 23:59 23:59 Intake Total 1515 / 1515 2185 / 2185 50 / 50 Balance 1515 / 1515 2185 / 2185 50 / 50 Lab / Micro Data Result Diagrams: 06/27/21 05:44 06/27/21 05:44 Labs: Laboratory Results - last 24 hr 06/27/21 05:44: WBC 7.2, RBC 3.46 L, Hgb 10.9 L, Hct 32.6 L, MCV 94.2, MCH 31.5, MCHC 33.4, RDW Std Deviation 46.0 H, RDW Coeff of Shadia 13.3, Plt Count 203, MPV 11.0, Immature Gran % (Auto) 0.300, Neut % (Auto) 58.8, Lymph % (Auto) 26.9, [place] % (Auto) 11.2 H, Eos % (Auto) 2.1, Baso % (Auto) 0.7, Absolute Neuts (auto) 4.2, Absolute Lymphs (auto) 1.92, Nucleated RBC % 0 06/27/21 05:44: Sodium 135 L, Potassium 3.6, Chloride 104, Carbon Dioxide 27.0, Anion Gap 4 L, BUN 13, Creatinine 0.74, Estim Creat Clear Calc 31.60, Est GFR (MDRD) Af Amer 97, Est GFR (MDRD) Non-Af 80, BUN/Creatinine Ratio 17.7, Glucose 85, Calcium 9.2 06/27/21 05:44: Magnesium 1.5 L Micro: Microbiology 06/25/21 13:11 Urine Catheter - Catheter Urine Culture - Final Escherichia coli Radiography Diagnostic Testing: Radiology Impression Echocardiogram 06/25/21 15:28 Interpretation Summary The estimated ejection fraction is 55 %. Unable to assess diastolic dysfunction. The left atrium is mildly enlarged. Trivial aortic valve insufficiency. Ordering Physician: Mouna Cano Referring Physician: Deanna Good Performed By: Leila Rodriguez, JABARI, RVT Physical Exam Const alert, oriented x3 and no apparent distress HEENT head/scalp atraumatic and moist oral mucous membranes Head and Scalp: normocephalic Eyes EOMs intact bilaterally and conjunctivae normal Neck no lymphadenopathy, supple and no JVD Resp normal respiratory effort, no retractions, no use of accessory muscles and clear to auscultation bilaterally Cardio regular rate, regular rhythm, no murmurs and no JVD GI normal to inspection, nondistended, normoactive bowel sounds, soft to palpation and non-tender Extremity normal to inspection, full ROM and no clubbing, cyanosis or edema Skin no rashes or lesions noted, no wounds, skin turgor normal and no jaundice Neuro CN's II-XII intact bilaterally Psych affect normal Assessment & Plan Assessment/Plan (1) JUS (acute kidney injury): (2) Syncope: (3) Acute UTI: (4) Hyponatremia: (5) Dehydration: PLAN: Day 3 Discharge planning: Patient is going to discharge home with home health care. Patient is reasonably ready to discharge today, however family has concerns about patient leaving due to confusion observed overnight. Family member will be traveling into town tomorrow to stay with patient [id number] and request that family member remain admitted until then. 1) acute cystitis Patient did have transient episode of confusion overnight. Patient was alert and oriented on my examination and was mentating well. Believe confusion was related to poor sleep hygiene while admitted. Urine culture grew E. coli. Abnormal UA on admission with positive nitrites, leukocyte esterase and 4+ bacteria. Currently vital signs are stable and patient is afebrile. There is n o white count currently. Plan; remain admitted to PCU for continued monitoring, continue ceftriaxone. 2) syncope Echocardiogram demonstrated an EF of 55% and indeterminate diastolic dysfunction. TSH and high-sensitivity troponins are within normal limits. Magnesium is low at 1.5. Carotid Doppler ordered/pending. Plan; remain admitted to PCU for cardiac telemetry monitoring, replace magnesium. 3) Hypomagnesemia Currently 1.5, replaced, continue to monitor BMP. 4) hyponatremia Resolved, currently 135. Likely due to dehydration prior to admission. Continue to monitor BMP. 5) JUS Resolved, currently 0.7. Likely due to dehydration prior to admission. Continue monitor BMP. 6) suspected severe malnutrition Dietitian consult ordered. Recently started Lexapro and escitalopram. Continue Ensure 4 times daily. 7) IBS Follows with outpatient GI clinic. Continue Bentyl. 8) Hypertension Home BP regimen continued, labetalol as needed. 9) hypothyroidism TSH within normal limits, continue Synthroid. 10) depression/anxiety Continue home Lexapro DVT prophylaxis - Lovenox Patient seen by Tremayne Winn PA-C, under the supervision of Dr. Anne. Documented by User: Dr. Debi Anne MD 06/27/21 15:52 Objective Data Lab / Micro Data Result Diagrams: 06/27/21 05:44 06/27/21 05:44
--- NOTE | 2021-06-27 14:01 | PCM.DC ---
Discharge Instructions Diet Discharge Diet: No restrictions Activity Discharge Activity: Return to Normal Activity Weight Bearing Status: Weight bearing as tolerated Dressing / Incision Call your doctor if you observe: Fever of 101 or Higher, Numbness or Tingling, Shortness of breath, Dizziness, Chest pain, Increased palpitations (irregular heartbeat) and Calf discomfort Follow Up Care Please Follow Up With: Primary care provider When: Within the next two weeks. Test Results: Test results from this visit will be discussed in further detail at your follow-up appointment, if applicable. Discharge Plan Admission Admit Date/Time: 06/26/21 11:07 Primary Reason for Your Visit: Syncope Attending Provider: Debi Anne Primary Care Provider: Deanna Good Discharge Orders/Prescriptions Prescriptions: New cefdinir 300 mg capsule 300 mg PO BID Qty: 10 RF: 0 Continued labetalol 200 mg tablet 200 mg PO BID RF: 0 spironolactone 25 mg tablet 25 mg PO DAILY RF: 0 pantoprazole 20 mg tablet,delayed release (DR/EC) 20 mg PO DAILY RF: 0 levothyroxine [Synthroid] 75 mcg tablet 75 mcg PO DAILY RF: 0 escitalopram oxalate 5 mg tablet 5 mg PO DAILY RF: 0 losartan 50 mg tablet 50 mg PO BID RF: 0 sucralfate 1 gram tablet 1 g PO QHS RF: 0 acetaminophen [Tylenol Extra Strength] 500 mg Tablet 1,000 mg PO Q4H PRN PRN (Reason: Pain) RF: 0 Referrals / Follow Up: Deanna Good MD [Primary Care Provider] - Within 2 Weeks Disposition Disposition (needs filled in before D/C Order can be placed): Home, Self Care
--- NOTE | 2021-06-27 14:11 | PCM.DC.SUM ---
Documented by User: Tremayne OCONNOR 06/27/21 14:16 Providers Date of Admission: 06/26/21 Primary Care Physician: Dr. Deanna Good MD Reason For Visit: SYNCOPE/UTI Diagnosis Discharge Diagnosis (1) JUS (acute kidney injury): Status: Acute Code(s): N17.9 - Acute kidney failure, unspecified (2) Syncope: Status: Acute Code(s): R55 - Syncope and collapse (3) Acute UTI: Status: Acute Code(s): N39.0 - Urinary tract infection, site not specified (4) Hyponatremia: Status: Acute Code(s): E87.1 - Hypo-osmolality and hyponatremia (5) Dehydration: Status: Acute Code(s): E86.0 - Dehydration Medications at Discharge Home Medications acetaminophen [Tylenol Extra Strength] 1,000 mg PO Q4H PRN PRN 06/25/21 labetalol 200 mg PO BID 06/25/21 levothyroxine [Synthroid] 75 mcg PO DAILY 06/25/21 losartan 50 mg PO BID 06/25/21 pantoprazole 20 mg PO DAILY 06/25/21 spironolactone 25 mg PO DAILY 06/25/21 sucralfate 1 g PO QHS 06/25/21 cefdinir 300 mg PO BID #10 cap 06/27/21 Hospital Course Procedures 2-D Echocardiogram Summary of Care Provided Minutes Spent on Discharge: 35 Hospital Course: Discharge planning: Patient to discharge home, home health care to be established by case management and social work on 06/29/2021. 1) acute cystitis Patient did have transient episode of confusion overnight. Patient was alert and oriented on my examination and was mentating well. Believe confusion was related to poor sleep hygiene while admitted. Urine culture grew E. coli. Abnormal UA on admission with positive nitrites, leukocyte esterase and 4+ bacteria. Currently vital signs are stable and patient is afebrile. There is no white count currently. Plan; continue cefdinir 30 mg p.o. twice daily x5 days, follow-up with primary care provider within the next 2 weeks. 2) syncope Echocardiogram demonstrated an EF of 55% and indeterminate diastolic dysfunction. Carotid Doppler ultrasound was ordered, would not be able to be obtained until 06/29. Patient did not have any carotid bruits on examination and has been without further episodes of syncope or lightheadedness since admission. Do not believe carotid ultrasound is necessary at this time. TSH and high-sensitivity troponins are within normal limits. Magnesium is low at 1.5. Plan; follow-up with primary care provider within the next 2 weeks. 3) Hypomagnesemia Currently 1.5, replaced. 4) hyponatremia Resolved, currently 135. Likely due to dehydration prior to admission. Continue to monitor BMP. 5) JUS Resolved, currently 0.7. Likely due to dehydration prior to admission. Continue monitor BMP. 6) suspected severe malnutrition Dietitian consult ordered. Recently started Lexapro and escitalopram. Continue Ensure 4 times daily. 7) IBS Follows with outpatient GI clinic. Continue Bentyl. 8) Hypertension Home BP regimen continued, labetalol as needed. 9) hypothyroidism TSH within normal limits, continue Synthroid. 10) depression/anxiety Continue home Lexapro Patient seen by Tremayne Winn PA-C, under the supervision of Dr. Anne. Physical Exam Narrative Patient is an 85-year-old female comfortably resting in bed, alert and orient x3. Patient did have some episodes of confusion earlier this morning, however patient relates this to poor sleep while admitted. Denies chest pain, shortness of breath, palpitations, hemoptysis, sputum production, fever, chills, N/V/D. Const alert, oriented x3 and no apparent distress HEENT normocephalic, head/scalp atraumatic and hearing grossly normal bilaterally Eyes PERRL, EOMs intact bilaterally and conjunctivae normal Neck no lymphadenopathy, supple and no JVD Resp normal respiratory effort, no retractions, no use of accessory muscles and clear to auscultation bilaterally Cardio regular rate, regular rhythm, no murmurs and no JVD GI normal to inspection, nondistended, normoactive bowel sounds, soft to palpation and non-tender Extremity normal to inspection, full ROM and no clubbing, cyanosis or edema Skin no rashes or lesions noted, no wounds and skin turgor normal Neuro CN's II-XII intact bilaterally Psych affect normal Weight / BMI Weight Weight: 119 lb 11.376 oz Body Mass Index (BMI) 22.6 ABG / Lab / Microbiology Data Result Diagrams: 06/27/21 05:44 06/27/21 05:44 Laboratory: Laboratory Results - last 24 hr 06/27/21 05:44: WBC 7.2, RBC 3.46 L, Hgb 10.9 L, Hct 32.6 L, MCV 94.2, MCH 31.5, MCHC 33.4, RDW Std Deviation 46.0 H, RDW Coeff of Shadia 13.3, Plt Count 203, MPV 11.0, Immature Gran % (Auto) 0.300, Neut % (Auto) 58.8, Lymph % (Auto) 26.9, Darke % (Auto) 11.2 H, Eos % (Auto) 2.1, Baso % (Auto) 0.7, Absolute Neuts (auto) 4.2, Absolute Lymphs (auto) 1.92, Nucleated RBC % 0 06/27/21 05:44: Sodium 135 L, Potassium 3.6, Chloride 104, Carbon Dioxide 27.0, Anion Gap 4 L, BUN 13, Creatinine 0.74, Estim Creat Clear Calc 31.60, Est GFR (MDRD) Af Amer 97, Est GFR (MDRD) Non-Af 80, BUN/Creatinine Ratio 17.7, Glucose 85, Calcium 9.2 06/27/21 05:44: Magnesium 1.5 L Microbiology: Microbiology 06/25/21 13:11 Urine Catheter - Catheter Urine Culture - Final Escherichia coli Radiography Diagnostic Testing: Radiology Impression Echocardiogram 06/25/21 15:28 Interpretation Summary The estimated ejection fraction is 55 %. Unable to assess diastolic dysfunction. The left atrium is mildly enlarged. Trivial aortic valve insufficiency. Ordering Physician: Mouna Cano Referring Physician: Deanna Good Performed By: Leila Rodriguez, JABARI, RVT D/C Instructions Discharge Diet: No restrictions Weight Bearing Status: Weight bearing as tolerated Call your doctor if you observe: Fever of 101 or Higher, Numbness or Tingling, Shortness of breath, Dizziness, Chest pain, Increased palpitations (irregular heartbeat) and Calf discomfort Please Follow Up With: Primary care provider When: Within the next two weeks. Meaningful Use Info Meaningful Use Diagnoses (Choose all that apply): None applicable Discharge Plan Admission Admit Date/Time: 06/26/21 11:07 Primary Reason for Your Visit: Syncope Attending Provider: Debi Anne Primary Care Provider: Deanna Good Discharge Orders/Prescriptions Prescriptions: New cefdinir 300 mg capsule 300 mg PO BID Qty: 10 RF: 0 Continued labetalol 200 mg tablet 200 mg PO BID RF: 0 spironolactone 25 mg tablet 25 mg PO DAILY RF: 0 pantoprazole 20 mg tablet,delayed release (DR/EC) 20 mg PO DAILY RF: 0 levothyroxine [Synthroid] 75 mcg tablet 75 mcg PO DAILY RF: 0 losartan 50 mg tablet 50 mg PO BID RF: 0 sucralfate 1 gram tablet 1 g PO QHS RF: 0 acetaminophen [Tylenol Extra Strength] 500 mg Tablet 1,000 mg PO Q4H PRN PRN (Reason: Pain) RF: 0 Discontinued escitalopram oxalate 5 mg tablet 5 mg PO DAILY RF: 0 Referrals / Follow Up: Deanna Good MD [Primary Care Provider] - Within 2 Weeks Disposition Disposition (needs filled in before D/C Order can be placed): Home, Self Care Documented by User: Dr. Debi Anne MD 06/27/21 19:12 Providers Date of Admission: 06/26/21 Reason For Visit: SYNCOPE/UTI Medications at Discharge Home Medications acetaminophen [Tylenol Extra Strength] 1,000 mg PO Q4H PRN PRN 06/25/21 labetalol 200 mg PO BID 06/25/21 levothyroxine [Synthroid] 75 mcg PO DAILY 06/25/21 losartan 50 mg PO BID 06/25/21 pantoprazole 20 mg PO DAILY 06/25/21 spironolactone 25 mg PO DAILY 06/25/21 sucralfate 1 g PO QHS 06/25/21 cefdinir 300 mg PO BID #10 cap 06/27/21 ABG / Lab / Microbiology Data Result Diagrams: 06/27/21 05:44 06/27/21 05:44 Discharge Plan Admission Admit Date/Time: 06/26/21 11:07 Primary Reason for Your Visit: Syncope Attending Provider: Debi Anne Primary Care Provider: Deanna Good Discharge Orders/Prescriptions Prescriptions: New cefdinir 300 mg capsule 300 mg PO BID Qty: 10 RF: 0 Continued labetalol 200 mg tablet 200 mg PO BID RF: 0 spironolactone 25 mg tablet 25 mg PO DAILY RF: 0 pantoprazole 20 mg tablet,delayed release (DR/EC) 20 mg PO DAILY RF: 0 levothyroxine [Synthroid] 75 mcg tablet 75 mcg PO DAILY RF: 0 losartan 50 mg tablet 50 mg PO BID RF: 0 sucralfate 1 gram tablet 1 g PO QHS RF: 0 acetaminophen [Tylenol Extra Strength] 500 mg Tablet 1,000 mg PO Q4H PRN PRN (Reason: Pain) RF: 0 Discontinued escitalopram oxalate 5 mg tablet 5 mg PO DAILY RF: 0 Referrals / Follow Up: Deanna Good MD [Primary Care Provider] - Within 2 Weeks Disposition Disposition (needs filled in before D/C Order can be placed): Home, Self Care Charges/Coding Addendum Addendum: This patient was seen in conjunction with ANASTASIA Rasheed. I have independently interviewed and examined the patient and reviewed pertinent historical, laboratory, and other data. Please refer to ANASTASIA Rasheed's note for his patient's presentation, findings, and recommendations. I have reviewed and his note and concur with his documentation 85-year-old female who presents with a syncopal episode. This was witnessed. Patient was standing and felt her knees were buckling and fell against the wall and slid to the ground. She had a few seconds of syncope. Patient recently had extensive GI work-up that was unremarkable. She recently was started on Lexapro. Her orthostatic vitals were initially positive in the ED. Patient received IV fluids. Repeat orthostatic vitals were negative on the floor. Patient's work-up was also suspicious for acute UTI. She was started on IV ceftriaxone. Her urine cultures grew E. coli. There were no acute events on telemetry. Patient had uncontrolled blood pressure secondary to meds not restarted. Her blood pressure meds were restarted with better control of her blood pressure. Patient had 2D echo that was unremarkable. She was unable to have a carotid ultrasound. She was recommended to follow-up with her primary care doctor and her signals collector/analyst within a week for possible 30-day event monitor. Social work and case management were consulted for patient with concerns for recurrent falls, extra help with meals, other community resources. Resources for private duty nursing care was also given to the patient and her son. On the day of discharge, patient was seen and examined. Did not have any new complaints. Physical Exam: Gen: Comfortable, not pale, not jaundiced CVS:HS I +II, regular, no murmurs RESP: Diminished at lung bases GI: BS present and normal, soft, nontender, no palpable organs EXT:No edema Visit Charges Inpatient E&M: 94188 Disch Hosp
[2021-06-27] MEDS: 0.9% Saline Lock 10 ML Syringe IV (14:59)
--- NOTE | 2021-06-27 16:55 | NURSING ---
Patient is being discharged today. Son is very concern to make sure home health gets set up. I faxed over discharge instructions and called and left a voicemail for the hr operations advisor nurse. The son would like to be called with the home health information. He would like for them to not call the patient and to just call him.
--- NOTE | 2021-06-29 15:57 | CASEMGMT ---
IRENE MAY received updated from [facility] and they are able to accept the patient. RN YADIRA called and left voice message for Son Thiago as requested.
== END 2021-06-27 17:17 | disposition home or self-care (01) | DRG 689 ==
LOC: ED 14:28 → PCU 15:28
PROVIDERS: Physician Assistant; Admitting Provider Internal Medicine; Emergency Provider Emergency Medicine; PCP Internal Medicine; Visit Provider Internal Medicine
DX: N39.0 Urinary tract infection, site not specified (principal); N17.9 Acute kidney failure, unspecified; E87.1 Hypo-osmolality and hyponatremia; B96.20 Unspecified Escherichia coli [E. coli] as the cause of diseases classified elsewhere; R29.6 Repeated falls; I95.1 Orthostatic hypotension; E03.9 Hypothyroidism, unspecified; R32 Unspecified urinary incontinence; E83.42 Hypomagnesemia; E86.0 Dehydration; F32.9 Major depressive disorder, single episode, unspecified; I44.7 Left bundle-branch block, unspecified; I49.1 Atrial premature depolarization; K58.9 Irritable bowel syndrome, unspecified; I10 Essential (primary) hypertension; F41.9 Anxiety disorder, unspecified; Z79.899 Other long term (current) drug therapy; Z79.890 Hormone replacement therapy; Z90.49 Acquired absence of other specified parts of digestive tract; Z68.22 Body mass index [BMI] 22.0-22.9, adult
CPT/HCPCS: 36415; 71045; 80048; 80053; 81001; 83735; 84100; 84443; 84484; 85025; 87077; 87086; 87088; 87186; 93005; 93306; 96361; 96365; 96366; 96372; 96375; 96376; 97110; 97116; 97161; 97166; 97530; 97802; 99218; 99285; J7030; A4216; G0378

== ENCOUNTER 2021-08-26 09:03 | Emergency (ER) | payer MEDICARE, SELFPAY ==
[2021-08-26 09:05] VITALS: BP 134/69; PULSE 64; RESP 16; TEMP 35.6; O2SAT 100; BMI 22.8
--- NOTE | 2021-08-26 09:28 | RAD_ITS ---
STUDY: X-RAY CHEST REASON FOR EXAM: Female, 85 years old. HYPERTENSION TECHNIQUE: Single AP portable view of the chest. COMPARISON: Comparison is made with prior study dated 06/25/2021. FINDINGS: EKG electrodes are seen. Surgical clips are seen overlying the left breast. The lungs are clear and expanded. There is no demonstrated pleural abnormality. There is mild cardiac enlargement. Normal mediastinum and nataliya. Normal visualized pulmonary arteries. There is atherosclerotic tortuosity of the aortic arch and descending thoracic aorta. Normal visualized thoracic spine. Normal visualized ribs, clavicles, and shoulders. There is no demonstrated abnormality of the visualized soft tissue structures of the upper abdomen. RAD/Chest 1 View (Portable) IMPRESSION: Mild cardiomegaly. The lungs are clear. Electronically Signed: Dougie Dove MD at 10:14 EDT , Service support ,
--- NOTE | 2021-08-26 09:28 | CT_ITS ---
STUDY: CT BRAIN WITHOUT CONTRAST REASON FOR EXAM: Female, 85 years old. Change in Mental Status RADIATION DOSAGE (If Supplied By Facility): CTDIvol = ( 44.99 ) mGy, DLP = ( 745.49 ) mGycm TECHNIQUE: Transaxial CT imaging of the brain was performed without administration of intravenous contrast material. Individualized dose optimization techniques were used for this CT. COMPARISON: No prior study. FINDINGS: Normal soft tissue structures. Normal calvarium. There is mild cerebral atrophy with widening of the extra-axial spaces and ventricular dilatation. There are areas of decreased attenuation within the white matter tracts of the supratentorial brain, consistent with microvascular disease changes. Tiny lacunae in the right thalamus. Normal brainstem. There is mild cerebellar atrophy. There is no intracranial hemorrhage. There are no findings of an acute ischemic infarction. Minimal mucosal thickening of the posterior aspect of the left maxillary sinus. CT/Brain/Head without Contrast IMPRESSION: Chronic involutional changes of the brain. Tiny lacuna in the right thalamus. Electronically Signed: Dougie Dove MD at 10:14 EDT , Service support ,
--- NOTE | 2021-08-26 09:28 | EKG12_ITS ---
Test Reason : CONFUSION Blood Pressure : / mmHG Vent. Rate : 051 BPM Atrial Rate : 051 BPM P-R Int : 158 ms QRS Dur : 140 ms QT Int : 492 ms P-R-T Axes : 015 -13 127 degrees QTc Int : 453 ms Sinus bradycardia Left bundle branch block Abnormal ECG Confirmed by PATO JULIAN, OLEG ([id number]), scientific editor ARABELLA WEST ([id number]) on 08/31/2021 8:27:01 AM Referred By: CHRIS Confirmed By:OLEG WHYTE MD
--- NOTE | 2021-08-26 09:29 | EDS_ITS ---
HPI History of Present Illness Chief Complaint: Confusion Informant: patient and family Narrative Narrative: 85-year-old female brought in by her son with a chief complaint of confusion. Patient states that his father about 2-1/2 years ago. Since that time they have noted a cognitive decline in their mother but more recently things have gotten severe. The son who lives in [place] is the closest living child. He notes that he helps extensively with her finances. She notes that she gets her nights in her days mixed up and recently her neighbor called her son asking why his mother was driving at 5:30 in the morning to go get new tires when her appointment is not until later in the day. They note that she has lost 25 pounds or so in the timeframe since her . They had people bringing in food but she was not eating as well as she normally would. The son notes that she is starting to have hallucinations stating that she reports that he as a child is in the basement being tortured. Last night she stated that he was outside and went come in so she left a jacket outside in the front door open. Please have done to welfare checks this year but there have been no 911 hang-ups or calls to their house. He notes that she yells at people that are not there. [facility] Medical History Acute UTI Anxiety HTN (hypertension) Hypothyroid Syncope Home Medications acetaminophen [Tylenol Extra Strength] 1,000 mg PO Q4H PRN PRN 06/25/21 [History Last Taken 06/25/21] labetalol 200 mg PO BID 06/25/21 [History Last Taken 06/25/21] levothyroxine [Synthroid] 75 mcg PO DAILY 06/25/21 [History Last Taken 06/25/21] losartan 50 mg PO BID 06/25/21 [History Last Taken 06/25/21] pantoprazole 20 mg PO DAILY 06/25/21 [History Last Taken 06/25/21] spironolactone 25 mg PO DAILY 06/25/21 [History Last Taken 06/25/21] Magnesium (oxide/AA chelate) 500 mg PO/SL DAILY 08/05/21 [History Last Taken Unknown] escitalopram oxalate 5 mg PO DAILY 08/05/21 [History Last Taken Unknown] Allergy/AdvReac Type Severity Reaction Status Date / Time acetaminophen [From Vicodin] Allergy Other Verified 08/26/21 09:10 hydrocodone [From Vicodin] Allergy Other Verified 08/26/21 09:10 propoxyphene [From Darvon] Allergy Other Verified 08/26/21 09:10 Family History Other Heart disease Hypertension Surgical History H/O partial thyroidectomy History of appendectomy History of cholecystectomy Social History (Updated 08/26/21 @ 09:[address] Jose Padilla DO) Smoking Status: Never smoker substance use type: does not use ROS ROS ED Constitutional Constitutional ED: Denies chills or weight loss Eyes Eyes: Denies change in vision or diplopia ENT ENT ED: Denies ear pain, rhinorrhea or sore throat Cardiovascular Cardiovascular: Denies chest pain, orthopnea, palpitations or racing heartbeat Respiratory/Chest Respiratory/Chest: Denies cough, dyspnea or orthopnea Gastrointestinal Gastrointestinal: Denies abdominal pain, diarrhea, nausea or vomiting Genitourinary Genitourinary ED: Denies dysuria, hematuria or urinary frequency Musculoskeletal Musculoskeletal: Denies arthralgias or myalgias Integumentary Denies abscess or rash Neurologic Neurologic: Denies headache(s) or weakness Psychiatric Psychiatric: Denies anxiety, depression, suicidal ideation or suicidal thoughts Endocrine Endocrinology: Denies polydipsia, polyphagia or polyuria Allergic/Immunologic Allergic/Immunologic ED: Denies mouth swelling, tongue swelling or urticaria EXAM Physical Exam Const Vital Signs: 08/26/21 09:05 08/26/21 11:08 Temperature 96.1 F L Temperature Source Temporal Pulse Rate 64 53 L Respiratory Rate 16 14 Blood Pressure 134/69 H 189/72 H Blood Pressure Mean 90 111 Pulse Ox 100 100 Oxygen Delivery Method Room Air Positive well nourished, well developed and unkempt General Appearance ED: unkempt and well developed HEENT Reports normocephalic, head/scalp atraumatic, TM's clear and moist mucous membranes Negative for trauma Tympanic Membrane ED: Yes TM's clear Eyes PERRL and EOMs intact bilaterally Neck no lymphadenopathy, supple and no JVD Resp normal respiratory effort and clear to auscultation bilaterally Cardio regular rate, regular rhythm and no murmurs GI normal to inspection, nondistended, normoactive bowel sounds and non-tender Palpation: soft Back/Spine no CVA tenderness and normal ROM Extremity normal to inspection General Extremety ED: Negative for edema General Extremity: Negative for edema Neuro oriented x3, CN's II-XII intact bilaterally and no sensory deficits noted Neuro Narrative: Patient can draw clock appropriately. She scores 1 out of 3 in a 3 item screener. Sensorium / Orientation: alert Motor Exam: strength 5/5 throughout Psych mental status grossly normal Appearance: unkempt Mood & Affect: Negative for depressed or tearful Skin no rashes or lesions noted and no wounds MDM MDM MDM Narrative Medical decision making narrative: My interpretation of the chest x-ray is no acute process. CT the brain does not show anything acute. Basic blood work hemoglobin 11.7 potassium 3.4 BUN of 23 with a creatinine of 1.02. TSH is normal 0.88. Alcohol and tox shows methamphetamine-MDMA. I suspect this is cross-reactivity as I do not suspect this 85-year-old has methamphetamine addiction that has gone unnoticed. Urinalysis shows no overt infection.. Patient's Covid test is negative. Patient is medically cleared for psychiatric assessment. Patient was assessed by SEAN Turcios. Lab Data Attestation: I reviewed the patient's lab results. Labs: Laboratory Results - last 24 hr 08/26/21 08/26/21 08/26/21 09:30 09:30 09:30 WBC 7.8 RBC 3.68 L Hgb 11.7 L Hct 35.3 L MCV 95.9 MCH 31.8 MCHC 33.1 RDW Std Deviation 43.5 RDW Coeff of Shadia 12.3 Plt Count 244 MPV 10.5 Immature Gran % (Auto) 0.400 Neut % (Auto) 66.3 Lymph % (Auto) 20.9 [place] % (Auto) 10.1 H Eos % (Auto) 1.5 Baso % (Auto) 0.8 Absolute Neuts (auto) 5.2 Absolute Lymphs (auto) 1.64 Nucleated RBC % 0 Sodium 137 Potassium 3.4 L Chloride 101 Carbon Dioxide 28.0 Anion Gap 8 BUN 23 H Creatinine 1.02 Estim Creat Clear Calc 29.49 Est GFR (MDRD) Af Amer 66 Est GFR (MDRD) Non-Af 55 L BUN/Creatinine Ratio 22.5 H Glucose 92 Calcium 9.6 Total Bilirubin 0.50 AST 14 L ALT 20 Alkaline Phosphatase 63 Total Protein 6.5 Albumin 3.5 Globulin 3.0 Albumin/Globulin Ratio 1.2 TSH 0.88 Urine Color Urine Clarity Urine pH Ur Specific Reg[place] Urine Protein Urine Glucose (UA) Urine Ketones Urine Occult Blood Urine Nitrite Urine Bilirubin Urine Urobilinogen Ur Leukocyte Esterase Urine RBC Urine WBC Ur Squamous Epith Cells Urine Bacteria Urine Mucus Urine Opiates Screen Urine Methadone Screen Ur Barbiturates Screen Ur Phencyclidine Scrn Ur Amphetamines Screen U Methamphetamin-MDMA U Benzodiazepines Scrn Urine Cocaine Screen U Cannabinoids Screen Ur Drug Screen Comment Ethyl Alcohol < 3.0 08/26/21 08/26/21 10:55 10:55 WBC RBC Hgb Hct MCV MCH MCHC RDW Std Deviation RDW Coeff of Shadia Plt Count MPV Immature Gran % (Auto) Neut % (Auto) Lymph % (Auto) [place] % (Auto) Eos % (Auto) Baso % (Auto) Absolute Neuts (auto) Absolute Lymphs (auto) Nucleated RBC % Sodium Potassium Chloride Carbon Dioxide Anion Gap BUN Creatinine Estim Creat Clear Calc Est GFR (MDRD) Af Amer Est GFR (MDRD) Non-Af BUN/Creatinine Ratio Glucose Calcium Total Bilirubin AST ALT Alkaline Phosphatase Total Protein Albumin Globulin Albumin/Globulin Ratio TSH Urine Color Yellow Urine Clarity Clear Urine pH 5.0 Ur Specific Reg[place] 1.015 Urine Protein Negative Urine Glucose (UA) Normal Urine Ketones Negative Urine Occult Blood Negative Urine Nitrite Negative Urine Bilirubin Negative Urine Urobilinogen Normal Ur Leukocyte Esterase Negative Urine RBC 0 SEEN Urine WBC 0 SEEN Ur Squamous Epith Cells 0 SEEN Urine Bacteria 0 SEEN Urine Mucus 0 SEEN Urine Opiates Screen NEGATIVE Urine Methadone Screen NEGATIVE Ur Barbiturates Screen NEGATIVE Ur Phencyclidine Scrn NEGATIVE Ur Amphetamines Screen NEGATIVE U Methamphetamin-MDMA POSITIVE H U Benzodiazepines Scrn NEGATIVE Urine Cocaine Screen NEGATIVE U Cannabinoids Screen NEGATIVE Ur Drug Screen Comment Ethyl Alcohol Radiography Diagnostic Testing: Clinical Impression(s) from Imaging Studies Brain CT 08/26/21 09:28 IMPRESSION: Chronic involutional changes of the brain. Tiny lacuna in the right thalamus. Electronically Signed: Dougie Dove MD at 10:14 EDT , Service support , Chest X-Ray 08/26/21 09:28 IMPRESSION: Mild cardiomegaly. The lungs are clear. Electronically Signed: Dougie Dove MD at 10:14 EDT , Service support , EKG Initial EKG: Attestation: I personally reviewed and interpreted this EKG as follows: Comments: Sinus bradycardia with a left bundle branch block with a ventricular rate of 51 bpm Discharge Plan Triage Chief Complaint: Confusion ED Provider: Jose Padilla Dx/Rx/DC Orders Clinical Impression: Auditory hallucinations Prescriptions: No Action labetalol 200 mg tablet 200 mg PO BID RF: 0 spironolactone 25 mg tablet 25 mg PO DAILY RF: 0 pantoprazole 20 mg tablet,delayed release (DR/EC) 20 mg PO DAILY RF: 0 levothyroxine [Synthroid] 75 mcg tablet 75 mcg PO DAILY RF: 0 losartan 50 mg tablet 50 mg PO BID RF: 0 acetaminophen [Tylenol Extra Strength] 500 mg Tablet 1,000 mg PO Q4H PRN PRN (Reason: Pain) RF: 0 Magnesium (oxide/AA chelate) 500 mg 500 mg PO/SL DAILY RF: 0 escitalopram oxalate 5 mg tablet 5 mg PO DAILY RF: 0 Primary Care Provider: Deanna Good Referrals: Deanna Good MD [Primary Care Provider] - Disposition Disposition: Psychiatric Hospital or Unit
[2021-08-26 09:48] LABS: Absolute Lymphocyte Count 1.64 X10^3/uL (0.83-4.51); Absolute Neutrophil Count 5.2 X10^3/uL (2.0-7.7); Basophil# 0.06 X10^3/uL; Basophil% 0.8 % (0-1); Eosinophil# 0.12 X10^3/uL; Eosinophils% 1.5 % (0-5); Hematocrit 35.3 % (37-47); Hemoglobin 11.7 g/dL (12.0-15.0); Lymphocyte # 1.64 X10^3/ul (0.83-4.51); Lymphocyte % 20.9 % (19-41); Mean Corp Hgb Conc 33.1 g/dL (32-36); Mean Corpuscular Hgb 31.8 pg (27.0-32.0); Mean Corpuscular Volume 95.9 fL (81-99); Mean Platelet Vol. 10.5 fl (6.2-12.0); Monocyte# 0.79 X10^3/uL; Monocyte% 10.1 % (0-10); NRBC Flagged by Analyzer 0 % (0-5); Neutrophil % 66.3 % (47-70); Platelet Count 244 K/mm3 (150-450); RBC Distribution Width CV 12.3 % (11.6-14.6); RBC Distribution Width SD 43.5 fl (35.1-43.9); Red Blood Count 3.68 M/mm3 (4.2-5.4); White Blood Count 7.8 K/mm3 (4.4-11.0)
[2021-08-26 10:08] LABS: ALB/GLOB Ratio 1.2 RATIO (0.9-2.4); AST(SGOT) 14 U/L (15-37); Alanine Aminotransfer ALT/SGPT 20 U/L (13-56); Albumin, Serum 3.5 g/dL (3.2-5.0); Alkaline Phosphatase 63 U/L (45-117); Anion Gap 8 (5-15); BUN 23 mg/dL (7-18); BUN/Creat Ratio 22.5 RATIO (10-20); Calcium,Total 9.6 mg/dL (8.5-10.1); Chloride 101 mmol/L (98-107); Creatinine, Serum 1.02 mg/dL (0.55-1.02); EST Glomerular Filtration Rate 55 mL/min (>60); Est Glom Filt Rate - Afr Amer 66 mL/min (>60); Estimated Creatinine Clearance 29.49 ml/min; Glucose 92 mg/dL (74-106); Potassium 3.4 mmol/L (3.5-5.1); Protein, Total 6.5 g/dL (6.4-8.2); Sodium Level 137 mmol/L (136-145); Thyroid Stim Hormone (TSH) 0.88 uIU/mL (0.358-3.74)
[2021-08-26 10:25] LABS: Alcohol, Blood (Medical)-Serum < 3.0 mg/dL
[2021-08-26 11:04] LABS: Bacteria 0 SEEN /hpf (None Seen); Mucous, Urine 0 SEEN /hpf (<or=2+); Red Blood Cells-Urine 0 SEEN /hpf (0-5); Squamous Epithelial Cells - UA 0 SEEN /hpf (5-10); White Blood Cells 0 SEEN /hpf (0-5)
[2021-08-26 11:07] LABS: Color, Urine Yellow (Yellow); Glucose, Dipstick Normal (Normal); Ketone-Dipstick Negative (Negative); Leukocyte Esterase-Dipstick Negative /ul (Negative); Nitrite-Dipstick Negative (Negative); Occult Blood-Urine Negative /ul (Negative); Protein-Dipstick Negative (Negative); Specific Gravity, Urine 1.015 (1.002-1.030); Urine Bilirubin Dipstick Negative (Negative); Urine Clarity Clear (Clear); Urine Urobilinogen Normal (Normal)
[2021-08-26 11:08] VITALS: BP 189/72; PULSE 53; RESP 14; O2SAT 100
[2021-08-26 11:27] LABS: Amphetamine Urine VISTA NEGATIVE (<1000 ng/mL); Barbiturate Urine VISTA NEGATIVE (< 200 ng/mL); Benzodiazepine Urine VISTA NEGATIVE (< 200 ng/mL); Cocaine Urine VISTA NEGATIVE (< 300 ng/mL); Ecstacy Urine VISTA POSITIVE (< 500 ng/mL); Methadone Urine VISTA NEGATIVE (< 300 ng/mL); PCP Urine VISTA NEGATIVE (< 25 ng/mL); THC Urine VISTA NEGATIVE (< 50 ng/mL); Vista UDS pH Range 6
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
--- NOTE | 2021-08-26 12:51 | CM.ED ---
MERRITT Note MERRITT conducted Psych Assessment on Patient. See documentation. MERRITT spoke to [facility]. They have beds. MERRITT faxed referral to [facility] for their review. Plan: Inpatient psych Karina ESQUIVEL
[2021-08-26 13:08] VITALS: PULSE 60; RESP 14; O2SAT 99
[2021-08-26 15:11] VITALS: BP 141/61; PULSE 63; RESP 18; O2SAT 97
--- NOTE | 2021-08-26 15:11 | NURSING ---
CALLED FOR A SQUAD, THEIR COMPUTERS ARE DOWN AND WILL CALL BACK WITH AN ETA
--- NOTE | 2021-08-26 15:50 | NURSING ---
ETA IS 30 MIN
[2021-08-26 17:00] VITALS: RESP 16
--- NOTE | 2021-08-26 17:44 | CM.ED ---
[facility] called. [facility] are willing to accept. They need pink slip and med list. SW faxed pink slip and med list to them. RN to IRENE james [phone]. Accepting MD is Douglas. Patient will meet with dyer and washer nurse and then patient's bed will be assigned. SW updated patient and her son, Thiago. SW updated RN and MD. No further SW needs at this time. Plan: [facility]. Karina ESQUIVEL
== END 2021-08-26 17:12 ==
PROVIDERS: Emergency Provider Emergency Medicine; PCP Internal Medicine
DX: R44.0 Auditory hallucinations (principal); I44.7 Left bundle-branch block, unspecified; I10 Essential (primary) hypertension; F41.9 Anxiety disorder, unspecified; E03.9 Hypothyroidism, unspecified; Z87.440 Personal history of urinary (tract) infections; Z79.899 Other long term (current) drug therapy
CPT/HCPCS: 70450; 71045; 80053; 80307; 81001; 82077; 84443; 85025; 87426; 93005; 99285

== ENCOUNTER → 2022-06-03 | Outpatient (CLI) | payer MEDICARE, SELFPAY ==
[2022-06-03 17:56] LABS: Vitamin D,25 Hydroxy 47.9 ng/mL
[2022-06-03 18:04] LABS: Anion Gap 3 (5-15); BUN 20 mg/dL (7-18); Calcium,Total 9.2 mg/dL (8.5-10.1); Chloride 106 mmol/L (98-107); Cholesterol 160 mg/dL (200); Creatinine, Serum 0.91 mg/dL (0.55-1.02); EST Glomerular Filtration Rate 62 mL/min (>60); Est Glom Filt Rate - Afr Amer 75 mL/min (>60); Glucose 103 mg/dL (74-106); High Density Lipoprotein 58 mg/dL; Potassium 4.1 mmol/L (3.5-5.1); Sodium Level 139 mmol/L (136-145); Triglycerides 29 mg/dL; Very Low Density Lipoprotein 6 mg/dL (5-40)
== END | disposition home or self-care (01) ==
LOC: MFPLAB 14:56
PROVIDERS: PCP Family Medicine; Referring Provider Family Medicine; Visit Provider Family Medicine
DX: Z00.00 Encounter for general adult medical examination without abnormal findings (principal); F32.A Depression, unspecified; E55.9 Vitamin D deficiency, unspecified; I10 Essential (primary) hypertension
CPT/HCPCS: 36415; 80048; 80061; 82306; 84443

== ENCOUNTER 2022-08-16 10:43 | Emergency (ER) | payer MEDICARE, SELFPAY ==
[2022-08-16 10:44] VITALS: BP 152/109; PULSE 98; RESP 18; TEMP 36.4; O2SAT 99; BMI 23.2
--- NOTE | 2022-08-16 10:53 | CT_ITS ---
STUDY: CT CERVICAL SPINE WITHOUT CONTRAST REASON FOR EXAM: Female, 86 years old. Neck injury due to a fall. RADIATION DOSAGE (If Supplied By Facility): CTDIvol = ( 12.80 ) mGy, DLP = ( 269.30 ) mGycm TECHNIQUE: High resolution transaxial imaging was performed without contrast material. Sagittal and coronal images were reconstructed. Individualized dose optimization techniques were used for this CT. COMPARISON: None FINDINGS: Normal craniovertebral junction. There are degenerative changes of the anterior atlantoaxial articulation. Normal odontoid process. There is straightening of the normal cervical lordosis. Normal vertebral bodies and posterior osseous elements. C2-3: Normal endplates. Normal disc height and morphology. Normal central canal and intervertebral neuroforamina. C3-4: Moderate degree of disc space narrowing. Spondylosis. Uncovertebral arthrosis and facet joint osteoarthritis with hypertrophy worse on the left side. Moderate degree of left neural foraminal stenosis. C4-5: Moderate degree of disc space narrowing. Minimal anterior listhesis of C4 on C5 due to the facet joint osteoarthritis. Uncovertebral arthrosis more prominent on the right side causing bilateral neuroforaminal stenosis worse on the right side. C5-6: Marked degree of disc space narrowing and spondylosis. Uncovertebral arthrosis. Moderate degree of bilateral neural foraminal stenosis. This also evidence of central canal stenosis due to posterior osteophyte formation. C6-7: Moderate degree of disc space narrowing. Uncovertebral arthrosis. Bilateral neural foraminal stenosis. C7-T1: Normal endplates. Normal disc height and morphology. Normal central canal and intervertebral neuroforamina. Calcification of the carotid bifurcations bilaterally. CT/Spine Cervical without Contras IMPRESSION: Multilevel degenerative changes, as described above. Electronically Signed: Dougie Dove MD at 12:09 EDT ,
--- NOTE | 2022-08-16 11:16 | CT_ITS ---
STUDY: CT BRAIN WITHOUT CONTRAST REASON FOR EXAM: Female, 86 years old. Head injury due to fall RADIATION DOSAGE (If Supplied By Facility): CTDIvol = ( 44.99 ) mGy, DLP = ( 796.11 ) mGycm TECHNIQUE: Transaxial CT imaging of the brain was performed without administration of intravenous contrast material. Individualized dose optimization techniques were used for this CT. COMPARISON: Comparison is made with prior study 08/26/2021. FINDINGS: Normal soft tissue structures. Normal calvarium. There is mild cerebral atrophy with widening of the extra-axial spaces and ventricular dilatation. There are areas of decreased attenuation within the white matter tracts of the supratentorial brain, consistent with microvascular disease changes. 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 Normal brainstem. Normal cerebellum. There is no intracranial hemorrhage. There are no findings of an acute ischemic infarction. Atherosclerotic calcification of the cavernous portions of the internal carotid arteries bilaterally. There is a 1 cm polyp or retention cyst at the base of the left maxillary sinus. CT/Brain/Head without Contrast IMPRESSION: Chronic involutional changes of the brain. Electronically Signed: Dougie Dove MD at 12:03 EDT ,
--- NOTE | 2022-08-16 11:31 | RAD_ITS ---
STUDY: X-RAY CHEST REASON FOR EXAM: Female, 86 years old. Rib injury TECHNIQUE: AP and lateral views of the chest. COMPARISON: Comparison is made with prior study dated 08/26/2021. FINDINGS: Surgical clips are seen in the left axillary region. The lungs are clear and expanded. There is no demonstrated pleural abnormality. There is borderline cardiomegaly. Normal mediastinum and nataliya. Normal visualized pulmonary arteries. There is atherosclerotic tortuosity of the aortic arch and descending thoracic aorta. There are diffuse degenerative changes of the visualized thoracic spine. Normal visualized ribs, clavicles, and shoulders. There is no demonstrated abnormality of the visualized soft tissue structures of the upper abdomen. RAD/Chest PA and Lateral IMPRESSION: No acute abnormality is seen. Electronically Signed: Dougie Dove MD at 12:11 EDT ,
--- NOTE | 2022-08-16 11:31 | EKG12_ITS ---
Test Reason : FALL Blood Pressure : / mmHG Vent. Rate : 081 BPM Atrial Rate : 081 BPM P-R Int : 104 ms QRS Dur : 134 ms QT Int : 414 ms P-R-T Axes : -19 -08 146 degrees QTc Int : 480 ms Sinus rhythm with short SD with frequent Premature ventricular complexes Left bundle branch block Abnormal ECG Confirmed by PATO JULIAN, OLEG ([id number]), writer editor ARABELLA WEST ([id number]) on 08/18/2022 10:36:10 AM Referred By: Confirmed By:OLEG WHYTE MD
--- NOTE | 2022-08-16 11:33 | ED.VIS.FALL ---
HPI HPI - Fall History of Present Illness Chief Complaint: Fall Informant: patient Occured/Mechanism Occurred: Today Narrative Narrative: Patient brought in after reported fall in the [facility]. Patient believes that she fell in her living room. There is reported loss of consciousness on the triage note, however I do not know who reported that. Patient complains of swelling around her left eye as well as bilateral rib pain. It does not appear that she is on any anticoagulants. PFSH PFSH Medical History Anxiety HTN (hypertension) Hypothyroid Syncope Home Medications acetaminophen 500 mg tablet (Tylenol Extra Strength) 1,000 mg PO Q4H PRN PRN Pain 06/25/21 [History Last Taken 06/25/21] labetalol 200 mg tablet 200 mg PO BID HEART 06/25/21 [History Last Taken 06/25/21] levothyroxine 75 mcg tablet (Synthroid) 75 mcg PO DAILY THYROID 06/25/21 [History Last Taken 06/25/21] losartan 50 mg tablet 50 mg PO BID BP 06/25/21 [History Last Taken 06/25/21] pantoprazole 20 mg tablet,delayed release 20 mg PO DAILY ACID REFLUX 06/25/21 [History Last Taken 06/25/21] spironolactone 25 mg tablet 25 mg PO DAILY FLUID 06/25/21 [History Last Taken 06/25/21] Magnesium (oxide/AA chelate) 500 mg PO/SL DAILY 08/05/21 [History Last Taken Unknown] escitalopram oxalate 5 mg tablet 5 mg PO DAILY 08/05/21 [History Last Taken Unknown] cephalexin 500 mg capsule 500 mg PO TID 08/26/21 [History Last Taken Unknown] Allergy/AdvReac Type Severity Reaction Status Date / Time acetaminophen [From Vicodin] Allergy Other Verified 08/16/22 10:46 hydrocodone [From Vicodin] Allergy Other Verified 08/16/22 10:46 propoxyphene [From Darvon] Allergy Other Verified 08/16/22 10:46 Family History Other Heart disease Hypertension Surgical History H/O partial thyroidectomy History of appendectomy History of cholecystectomy Social History Smoking Status: Never smoker substance use type: does not use ROS ROS ED Constitutional Constitutional ED: Denies chills or fever(s) Eyes Eyes: Denies change in vision or discharge from eye(s) ENT ENT ED: Denies discharge from eye(s), rhinorrhea or sore throat Cardiovascular Cardiovascular: Reports other Details: Bilateral rib pain ; Denies palpitations Respiratory/Chest Respiratory/Chest: Denies cough or dyspnea Gastrointestinal Gastrointestinal: Denies abdominal pain, diarrhea, nausea or vomiting Genitourinary Genitourinary ED: Denies dysuria Musculoskeletal Musculoskeletal: Denies back pain or extremity pain Integumentary Denies Abrasions or rash Neurologic Neurologic: Denies headache(s) or weakness Allergic/Immunologic Allergic/Immunologic ED: Denies lip swelling or urticaria EXAM Physical Exam Const Vital Signs: 08/16/22 10:44 08/16/22 12:20 Temperature 97.5 F L Temperature Source Temporal Pulse Rate 98 Respiratory Rate 18 Respiratory Effort Normal Non-Labored Respiratory Depth Normal Respiratory Pattern Normal Blood Pressure 152/109 H Blood Pressure Mean 123 Pulse Ox 99 Oxygen Delivery Method Room Air Positive well nourished and well developed General Appearance ED: well developed HEENT Reports normocephalic and head/scalp atraumatic Eyes PERRL and EOMs intact bilaterally Eyes Narrative: Left infraorbital swelling. Extraocular movements fully intact. Neck supple Chest Wall inspection of chest normal and palpation of chest normal Resp normal respiratory effort and clear to auscultation bilaterally Cardio regular rate and regular rhythm GI normal to inspection, nondistended, normoactive bowel sounds Palpation: soft Extremity normal to inspection Neuro oriented x3 and no sensory deficits noted Sensorium / Orientation: alert Motor Exam: strength 5/5 throughout Psych mental status grossly normal Skin no rashes or lesions noted MDM MDM MDM Narrative Medical decision making narrative: Patient sent for CT scan of the head and C-spine prior to my initial evaluation after discussing with the other ED physician. At the time of my exam I added an EKG as well as chest x-ray. Radiography Diagnostic Testing: Clinical Impression(s) from Imaging Studies Cervical Spine CT 08/16/22 10:53 IMPRESSION: Multilevel degenerative changes, as described above. Electronically Signed: Dougie Dove MD at 12:09 EDT , Brain CT 08/16/22 11:16 IMPRESSION: Chronic involutional changes of the brain. Electronically Signed: Dougie Dove MD at 12:03 EDT , Chest X-Ray 08/16/22 11:31 IMPRESSION: No acute abnormality is seen. Electronically Signed: Dougie Dove MD at 12:11 EDT , EKG Initial EKG: Attestation: I personally reviewed and interpreted this EKG as follows: Interpretation: Sinus Rhythm (Sinus 81 with frequent PVCs. No acute ischemia.) Treatment and Re-Evaluation Narrative: Chest x-ray per my interpretation shows no obvious acute abnormalities. Radiology interpretation is reviewed and agrees. CT scan of the head reveals chronic involutional changes. CT C-spine reveals degenerative changes. Test results are discussed with patient as well as son at bedside. I was able to obtain paperwork from the [facility] and patient does have a history of dementia. Discharge Plan Triage Chief Complaint: Fall ED Provider: Eugenie Padilla Dx/Rx/DC Orders Clinical Impression: Fall, Rib contusion, Contusion of face Instructions: ED Chest Wall Contusion, ED Facial Contusion Prescriptions: No Action labetalol 200 mg tablet 200 mg PO BID spironolactone 25 mg tablet 25 mg PO DAILY pantoprazole 20 mg tablet,delayed release (DR/EC) 20 mg PO DAILY levothyroxine [Synthroid] 75 mcg tablet 75 mcg PO DAILY losartan 50 mg tablet 50 mg PO BID acetaminophen [Tylenol Extra Strength] 500 mg Tablet 1,000 mg PO Q4H PRN PRN (Reason: Pain) Magnesium (oxide/AA chelate) 500 mg 500 mg PO/SL DAILY escitalopram oxalate 5 mg tablet 5 mg PO DAILY cephalexin 500 mg Capsule 500 mg PO TID Primary Care Provider: Isaiah Haile Referrals: Isaiah Haile MD [Primary Care Provider] - 3-5 Days Disposition Disposition: Home, Self Care
== END 2022-08-16 14:05 | disposition home or self-care (01) ==
PROVIDERS: Emergency Provider Emergency Medicine; PCP Family Medicine; Visit Provider Emergency Medicine
DX: S00.83XA Contusion of other part of head, initial encounter (principal); S20.219A Contusion of unspecified front wall of thorax, initial encounter; I10 Essential (primary) hypertension; W18.2XXA Fall in (into) shower or empty bathtub, initial encounter
CPT/HCPCS: 70450; 71046; 72125; 93005; 99282

== ENCOUNTER 2022-09-10 09:15 | Emergency (ER) | payer MEDICARE, SELFPAY ==
[2022-09-10 09:17] VITALS: BP 156/92; PULSE 98; TEMP 36.3; O2SAT 95; BMI 22.5
--- NOTE | 2022-09-10 09:26 | RAD_ITS ---
STUDY: X-RAY - RIGHT ANKLE REASON FOR EXAM: Female, 86 years old. Trauma TECHNIQUE: 3 view(s) of the ankle. COMPARISON: None. FINDINGS: The bones are diffusely demineralized. There are degenerative changes of the mid and hindfoot. The soft tissue structures are unremarkable. RAD/Ankle min 3 Views IMPRESSION: Degenerative changes. Electronically Signed: Niki English MD at 10:01 EST ,
--- NOTE | 2022-09-10 09:26 | CT_ITS ---
STUDY: CT BRAIN WITHOUT CONTRAST REASON FOR EXAM: Female, 86 years old. Head injury RADIATION DOSAGE (If Supplied By Facility): CTDIvol = ( 44.99 ) mGy, DLP = ( 796.11 ) mGycm TECHNIQUE: Transaxial CT imaging of the brain was performed without administration of intravenous contrast material. Individualized dose optimization techniques were used for this CT. COMPARISON: 08/16/2022 FINDINGS: Normal soft tissue structures. Normal calvarium. There is mild cerebral atrophy with widening of the extra-axial spaces and ventricular dilatation. There are areas of decreased attenuation within the white matter tracts of the supratentorial brain, consistent with microvascular disease changes. Normal basal ganglia and thalami. Normal brainstem. There is mild cerebellar atrophy. There is no intracranial hemorrhage. There are no findings of an acute ischemic infarction. Normal visualized paranasal sinuses. CT/Brain/Head without Contrast IMPRESSION: Chronic involutional changes of the brain. Small vessel ischemia. Electronically Signed: Niki English MD at 10:00 EST ,
--- NOTE | 2022-09-10 09:26 | CT_ITS ---
STUDY: CT LUMBAR SPINE WITHOUT CONTRAST REASON FOR EXAM: Female, 86 years old. Pain AFTER FALL RADIATION DOSAGE (If Supplied By Facility): CTDIvol = ( 16.01 ) mGy, DLP = ( 537.20 ) mGycm TECHNIQUE: The patient was scanned in a multi detector CT scanner. High resolution transaxial imaging was performed. Images were obtained from to . Sagittal and coronal images were reconstructed. Individualized dose optimization techniques were used for this CT. COMPARISON: None FINDINGS: Normal lumbar lordosis. There is no substantial scoliosis. The bones are diffusely demineralized. There is a superior endplate deformity of T12 that appears chronic. There is a superior endplate deformity of L2 that appears chronic with approximately 30% height loss of the mid vertebral body. There is a mid body compression deformity of L3 with approximately 70% height loss of the mid vertebral body. There is a mid body compression deformity of L2 with approximately 80% height loss of the mid vertebral body. There is a mid body compression deformity of L5 with approximately 40% height loss of the mid vertebral body. There is a fracture of the coccyx associated with prevertebral soft tissue stranding. L1-2: There is a posterior disc osteophyte and facet hypertrophy associated with stenosis of the central canal. Normal bilateral intervertebral neural foramina. L2-3: There is a posterior disc osteophyte and facet hypertrophy associated with stenosis of the central canal and bilateral narrowing of the intervertebral neural foramina. L3-4: There is a posterior disc osteophyte and facet hypertrophy associated with stenosis of the central canal and bilateral narrowing of the intervertebral neural foramina. L4-5: There is a posterior disc osteophyte and facet hypertrophy associated with stenosis of the central canal and bilateral narrowing of the intervertebral neural foramina. L5-S1: There is a posterior disc osteophyte and facet hypertrophy associated narrowing of the left neural foramina. There are vascular calcifications. CT/Spine Lumbar without Contrast IMPRESSION: Coccygeal fracture. L2-L5 endplate deformities of uncertain chronicity, likely chronic. Multilevel degenerative changes. Atherosclerosis. Electronically Signed: Niki English MD at 10:19 EST ,
--- NOTE | 2022-09-10 09:27 | EDS_ITS ---
HPI HPI - Fall History of Present Illness Chief Complaint: Fall Narrative Narrative: 86-year-old female [facility]. She states that she was using her walker, the trying to go to the bathroom 2 to 3 hours ago. She fell and struck the back of her head. She states she has right ankle pain. She reported low back pain to the residential facility but denies it here. History and physical is mildly limited secondary to dementia. She states she does not take blood thinners and denies any headache. She has pain mainly in her right ankle that is worse with movement. No reported loss of consciousness. No neck pain. She denies other injury. [facility] Medical History Anxiety HTN (hypertension) Hypothyroid Syncope Home Medications levothyroxine 75 mcg tablet (Synthroid) 75 mcg PO DAILY THYROID 06/25/21 [History Last Taken 06/25/21] losartan 50 mg tablet 50 mg PO BID BP 06/25/21 [History Last Taken 06/25/21] spironolactone 25 mg tablet 25 mg PO DAILY FLUID 06/25/21 [History Last Taken 06/25/21] escitalopram oxalate 5 mg tablet 5 mg PO DAILY 08/05/21 [History Last Taken Unknown] amlodipine 10 mg tablet 10 mg PO DAILY 09/10/22 [History Last Taken Unknown] aripiprazole 10 mg tablet 10 mg PO DAILY 09/10/22 [History Last Taken Unknown] docusate sodium 100 mg capsule (Colace) 100 mg PO DAILY #20 caps 09/10/22 [Rx Last Taken Unknown] memantine 5 mg tablet 5 mg PO BID 09/10/22 [History Last Taken Unknown] mirtazapine 15 mg tablet 15 mg PO DAILY 09/10/22 [History Last Taken Unknown] Allergy/AdvReac Type Severity Reaction Status Date / Time acetaminophen [From Vicodin] Allergy Other Verified 09/10/22 09:27 hydrocodone [From Vicodin] Allergy Other Verified 09/10/22 09:27 propoxyphene [From Darvon] Allergy Other Verified 09/10/22 09:27 Family History Other Heart disease Hypertension Surgical History H/O partial thyroidectomy History of appendectomy History of cholecystectomy Social History Smoking Status: Never smoker substance use type: does not use ROS ROS ED ROS Narrative Constitutional: No fever, no chills. HEENT: No sore throat. No neck pain. No loss of vision. No rhinorrhea. Cardiovascular: No chest pain. No palpitations. No pedal edema. Respiratory: No cough, no shortness of breath. Abdominal: No abdominal pain. No nausea. No vomiting. Genitourinary: No dysuria. No hematuria. Musculoskeletal: No myalgias. Right ankle pain. Currently denies any low back pain. Neurologic: No headaches. No dizziness. No lightheadedness. Skin: No rash. No change in color. Psychiatric: No depression. No anxiety. EXAM Physical Exam Narrative Exam Narrative: Afebrile. Vital signs noted. GCS 15. ABCs intact. HEENT: Normocephalic. Atraumatic. PERRL, EOMI. Neck soft and supple. No point tenderness or step off. Cardiovascular: Regular rate and rhythm. No murmurs, rubs, or gallops appreciated. Respiratory: No tachypnea. Lungs clear to auscultation bilaterally. Gastrointestinal: Abdomen soft, nontender, with normoactive bowel sounds. No rebound or guarding. Neurological: Awake. Alert. Nonfocal, nonlateralizing. Skin: No rash. Normal color. No pallor. Musculoskeletal: No pedal edema. Full range of motion extremities. Mild tenderness to palpation right ankle. No noted ecchymosis or crepitance. No pain at base of fifth metatarsal. No palpable Achilles tendon deficit. No proximal fibular head tenderness. Const Vital Signs: 09/10/22 09:17 09/10/22 09:32 Temperature 97.3 F L Temperature Source Temporal Pulse Rate 98 Respiratory Effort Normal Non-Labored Respiratory Depth Normal Respiratory Pattern Normal Blood Pressure 156/92 H Blood Pressure Mean 113 Pulse Ox 95 Oxygen Delivery Method Room Air Room Air MDM MDM MDM Narrative Medical decision making narrative: Given her age, CT of the brain will be obtained. I will also obtain CT of the lumbar spine and x-rays were obtained of the right ankle in 3 views. She will be administered Tylenol after negative head CT. CT of the brain shows no acute fracture or hemorrhage. CT of the lumbar spine shows various compression deformities, however I am unsure if these are related to her recent fall as they may have been old. There is a new coccygeal fracture noted with prevertebral soft tissue swelling noted. She will be put on Colace once a day as a stool softener. She was administered Tylenol for analgesia. X-rays of the right ankle interpreted by myself show no evidence of fracture. She will be placed in an Hal wrap for support. Her son mentioned that she may have been confused over the last few days and would like a urinalysis checked. Her urinalysis shows 0-5 WBCs but 3+ bacteria. She is not having dysuria, but this will be sent for cultures. I do not feel that antibiotics are currently indicated. At this point in time, I feel she can be discharged safely home with follow-up. Her son who is now at the bedside did mention that he had heard that she had hip pain, but she is stating that she does not have hip pain currently, and clinically, she does not have a hip fracture, and son declined x-rays. Return instructions to the emergency department were reviewed. Disposition is discharged home in stable condition. Lab Data Attestation: I reviewed the patient's lab results. Labs: Laboratory Results - last 24 hr 09/10/22 10:17 Urine Color Yellow Urine Clarity Cloudy Urine pH 7.0 Ur Specific [place] 1.010 Urine Protein Negative Urine Glucose (UA) Normal Urine Ketones 5 H Urine Occult Blood 25 H Urine Nitrite Negative Urine Bilirubin Negative Urine Urobilinogen 1 H Ur Leukocyte Esterase 500 H Urine RBC 0 SEEN Urine WBC 0-5 SEEN Ur Squamous Epith Cells 0-5 SEEN Urine Bacteria 3+ Urine Mucus 0 SEEN Radiography Diagnostic Testing: Clinical Impression(s) from Imaging Studies Ankle X-Ray 09/10/22 09:26 IMPRESSION: Degenerative changes. Electronically Signed: Niki English MD at 10:01 EST , Brain CT 09/10/22 09:26 IMPRESSION: Chronic involutional changes of the brain. Small vessel ischemia. Electronically Signed: Niki English MD at 10:00 EST , Lumbar Spine CT 09/10/22 09:26 IMPRESSION: Coccygeal fracture. L2-L5 endplate deformities of uncertain chronicity, likely chronic. Multilevel degenerative changes. Atherosclerosis. Electronically Signed: Niki English MD at 10:19 EST , Discharge Plan Triage Chief Complaint: Fall ED Provider: Kevin Jeffers Dx/Rx/DC Orders Clinical Impression: Fall, Ankle sprain, Closed head injury, Closed coccygeal fracture, Compression deformity of vertebra Instructions: ED Tailbone (Coccyx) Fracture, ED Fracture, Vertebral Comp ression, ED Mechanical Fall, ED Head Injury (Adult), ED Ankle Sprain (Adult), ED Fall Prevention Prescriptions: New docusate sodium [Colace] 100 mg capsule 100 mg PO DAILY Qty: 20 0RF No Action spironolactone 25 mg tablet 25 mg PO DAILY levothyroxine [Synthroid] 75 mcg tablet 75 mcg PO DAILY losartan 50 mg tablet 50 mg PO BID escitalopram oxalate 5 mg tablet 5 mg PO DAILY amlodipine 10 mg tablet 10 mg PO DAILY mirtazapine 15 mg tablet 15 mg PO DAILY aripiprazole 10 mg tablet 10 mg PO DAILY memantine 5 mg tablet 5 mg PO BID Primary Care Provider: Isaiah Haile Referrals: Isaiah Haile MD [Primary Care Provider] - 1-2 Days if not improving Disposition Disposition: Assisted Living Discharge Location: [facility] [place]
[2022-09-10 10:22] LABS: Mucous, Urine 0 SEEN /hpf (<or=2+); Red Blood Cells-Urine 0 SEEN /hpf (0-5)
[2022-09-10 10:24] LABS: Color, Urine Yellow (Yellow); Glucose, Dipstick Normal (Normal); Ketone-Dipstick 5 mg/dl (Negative); Leukocyte Esterase-Dipstick 500 /ul (Negative); Nitrite-Dipstick Negative (Negative); Occult Blood-Urine 25 /ul (Negative); Protein-Dipstick Negative (Negative); Urine Bilirubin Dipstick Negative (Negative); Urine Clarity Cloudy (Clear); Urine Urobilinogen 1 mg/dl (Normal)
[2022-09-10 10:42] LABS: Bacteria 3+ /hpf (None Seen); Squamous Epithelial Cells - UA 0-5 SEEN /hpf (5-10); White Blood Cells 0-5 SEEN /hpf (0-5)
[2022-09-10] MEDS: Acetaminophen 325 MG Tablet 650 MG PO (11:43)
[2022-09-10 11:49] VITALS: BP 171/86; PULSE 92; RESP 16; O2SAT 96
== END 2022-09-10 12:09 | disposition home or self-care (01) ==
PROVIDERS: Emergency Provider Emergency Medicine; PCP Family Medicine; Visit Provider Emergency Medicine
DX: S32.2XXA Fracture of coccyx, initial encounter for closed fracture (principal); S09.90XA Unspecified injury of head, initial encounter; S93.401A Sprain of unspecified ligament of right ankle, initial encounter; I10 Essential (primary) hypertension; W19.XXXA Unspecified fall, initial encounter; Z79.899 Other long term (current) drug therapy
CPT/HCPCS: 70450; 72131; 73610; 81001; 87077; 87086; 87088; 87186; 99284

== ENCOUNTER 2022-09-21 10:00 | Observation (INO) | payer MEDICARE, SELFPAY ==
[2022-09-21 10:01] VITALS: BP 139/57; PULSE 90; RESP 18; TEMP 36.7; O2SAT 98; BMI 21.7
--- NOTE | 2022-09-21 11:02 | EDS_ITS ---
HPI History of Present Illness Chief Complaint: Weakness Informant: family Limited: dementia Onset/Context/Timing Onset: Days (11) Context: Gradual Onset Timing: Continuous Quality: Dizziness Location: Generalized Worsened by: Nothing Relieved by: Nothing Narrative Narrative: Patient presents with generalized weakness and frequent falls over the past 11 days. Son states that this is the third time she has fallen in the last 11 days. He also states that is the fourth time in the last month that she has fallen. Patient lives at an assisted living. Son states that the patient needs to go to [facility] facility. Patient has a history of dementia and is a poor historian. Patient was recently treated for urinary tract infection. Son denies any fevers or chills. Son denies any nausea or vomiting. [facility] Medical History (Updated 09/21/22 @ 13:[address] Liban Gale, DO) Anxiety HTN (hypertension) Hypothyroid Syncope UTI (urinary tract infection) Home Medications levothyroxine 75 mcg tablet (Synthroid) 75 mcg PO DAILY THYROID 06/25/21 [History Last Taken 06/25/21] losartan 50 mg tablet 50 mg PO BID BP 06/25/21 [History Last Taken 06/25/21] spironolactone 25 mg tablet 25 mg PO DAILY FLUID 06/25/21 [History Last Taken 06/25/21] escitalopram oxalate 5 mg tablet 5 mg PO DAILY 08/05/21 [History Last Taken Unknown] amlodipine 10 mg tablet 10 mg PO DAILY 09/10/22 [History Last Taken Unknown] aripiprazole 10 mg tablet 10 mg PO DAILY 09/10/22 [History Last Taken Unknown] docusate sodium 100 mg capsule (Colace) 100 mg PO DAILY #20 caps 09/10/22 [Rx Last Taken Unknown] memantine 5 mg tablet 5 mg PO BID 09/10/22 [History Last Taken Unknown] mirtazapine 15 mg tablet 15 mg PO DAILY 09/10/22 [History Last Taken Unknown] Allergy/AdvReac Type Severity Reaction Status Date / Time acetaminophen [From Vicodin] Allergy Other Verified 09/21/22 10:05 hydrocodone [From Vicodin] Allergy Other Verified 09/21/22 10:05 propoxyphene [From Darvon] Allergy Other Verified 09/21/22 10:05 Family History Other Heart disease Hypertension Surgical History H/O partial thyroidectomy History of appendectomy History of cholecystectomy Social History Smoking Status: Never smoker substance use type: does not use ROS ROS ED Constitutional Constitutional ED: Denies chills or fever(s) Eyes Eyes: Denies blurry vision or change in vision ENT ENT ED: Denies rhinorrhea or sore throat Cardiovascular Cardiovascular: Denies chest pain or palpitations Respiratory/Chest Respiratory/Chest: Denies cough or dyspnea Gastrointestinal Gastrointestinal: Denies nausea or vomiting Genitourinary Genitourinary ED: Denies dysuria or hematuria Musculoskeletal Musculoskeletal: Denies back pain or neck pain Integumentary Denies abscess or rash Neurologic Neurologic: Reports weakness; Denies headache(s) Allergic/Immunologic Allergic/Immunologic ED: Denies mouth swelling or urticaria EXAM Physical Exam Const Vital Signs: 09/21/22 10:01 09/21/22 11:22 09/21/22 12:15 Temperature 98.1 F 97.5 F L Temperature Source Temporal Oral Pulse Rate 90 75 Respiratory Rate 18 18 Respiratory Effort Normal Non-Labored Respiratory Pattern Normal Blood Pressure 139/57 H 135/64 H Blood Pressure Mean 84 87 Pulse Ox 98 97 Oxygen Delivery Method Room Air Positive well nourished and well developed General Appearance ED: well developed and NAD HEENT Reports moist mucous membranes Neck supple and no JVD Resp normal respiratory effort and clear to auscultation bilaterally Cardio regular rate, regular rhythm and no murmurs GI normal to inspection, nondistended, normoactive bowel sounds and non-tender Palpation: soft Extremity normal to inspection General Extremety ED: Negative for edema or tenderness General Extremity: Negative for edema Neuro CN's II-XII intact bilaterally and no sensory deficits noted Sensorium / Orientation: alert Motor Exam: general weakness Psych mental status grossly normal Skin no rashes or lesions noted MDM MDM MDM Narrative Medical decision making narrative: She was given IV fluids. Patient given a dose of Tylenol here. CBC was within normal limits. Comprehensive metabolic profile shows a BUN of 33 and creatinine 1.03. These are consistent with prior results. Lactate was normal. CT scan of the brain was obtained. There is no acute intracranial abnormality. This was interpreted by the radiologist and reviewed by myself. Portable 1 view chest x- ray was obtained. On my interpretation, lung mai are clear. There is normal cardiac silhouette. Bony thorax is normal. There is no acute process noted. Radiologist also interpreted the x-ray and agrees. Urinalysis shows leukocyte esterase of 25 with 10-25 white blood cells and 1+ bacteria. Urine culture was ordered. Patient was given a dose of Rocephin here. field crop harvest worker was in to evaluate the patient and stated that the patient would require admission to the hospital for placement in a [facility] facility. Case was discussed with the hospitalist. He will admit the patient for observation. Family understood and was agreeable with the plan. All questions were answered. Lab Data Attestation: I reviewed the patient's lab results. Labs: Laboratory Results - last 24 hr 09/21/22 09/21/22 09/21/22 11:20 11:20 11:20 WBC 9.3 RBC 4.10 L Hgb 12.8 Hct 38.1 MCV 92.9 MCH 31.2 MCHC 33.6 RDW Std Deviation 45.3 H RDW Coeff of Shadia 13.2 Plt Count 342 MPV 10.9 Immature Gran % (Auto) 0.400 Neut % (Auto) 79.9 H Lymph % (Auto) 11.0 L [place] % (Auto) 8.1 Eos % (Auto) 0.0 Baso % (Auto) 0.6 Absolute Neuts (auto) 7.4 Absolute Lymphs (auto) 1.03 Nucleated RBC % 0 Sodium 138 Potassium 4.2 Chloride 105 Carbon Dioxide 27.0 Anion Gap 6 BUN 33 H Creatinine 1.03 H Estim Creat Clear Calc 30.13 Est GFR (MDRD) Af Amer 65 Est GFR (MDRD) Non-Af 54 L BUN/Creatinine Ratio 32.0 H Glucose 96 Lactic Acid 1.0 Calcium 10.2 H Total Bilirubin 0.50 AST 29 ALT 23 Alkaline Phosphatase 122 H Total Protein 6.4 Albumin 3.2 Globulin 3.2 Albumin/Globulin Ratio 1.0 Urine Color Urine Clarity Urine pH Ur Specific [place] Urine Protein Urine Glucose (UA) Urine Ketones Urine Occult Blood Urine Nitrite Urine Bilirubin Urine Urobilinogen Ur Leukocyte Esterase Urine RBC Urine WBC Ur Squamous Epith Cells Urine Bacteria Urine Mucus 09/21/22 12:10 WBC RBC Hgb Hct MCV MCH MCHC RDW Std Deviation RDW Coeff of Shadia Plt Count MPV Immature Gran % (Auto) Neut % (Auto) Lymph % (Auto) [place] % (Auto) Eos % (Auto) Baso % (Auto) Absolute Neuts (auto) Absolute Lymphs (auto) Nucleated RBC % Sodium Potassium Chloride Carbon Dioxide Anion Gap BUN Creatinine Estim Creat Clear Calc Est GFR (MDRD) Af Amer Est GFR (MDRD) Non-Af BUN/Creatinine Ratio Glucose Lactic Acid Calcium Total Bilirubin AST ALT Alkaline Phosphatase Total Protein Albumin Globulin Albumin/Globulin Ratio Urine Color Yellow Urine Clarity Clear Urine pH 5.0 Ur Specific [place] 1.020 Urine Protein Negative Urine Glucose (UA) Normal Urine Ketones 5 H Urine Occult Blood 10 H Urine Nitrite Negative Urine Bilirubin Negative Urine Urobilinogen 1 H Ur Leukocyte Esterase 25 H Urine RBC 5-10 SEEN Urine WBC 10-25 SEEN Ur Squamous Epith Cells 0-5 SEEN Urine Bacteria 1+ Urine Mucus 0 SEEN Radiography Chest X-Ray - ED: 1 View, Read by ED Physician, Read by Radiologist and No Acute Disease Diagnostic Testing: Clinical Impression(s) from Imaging Studies Brain CT 09/21/22 11:05 IMPRESSION: Chronic involutional changes of the brain. Electronically Signed: Dougie Dove MD at 12:06 EST , Chest X-Ray 09/21/22 11:30 IMPRESSION: No acute abnormality is seen. Electronically Signed: Dougie Dove MD at 12:06 EST , Discharge Plan Triage Chief Complaint: Weakness ED Provider: Liban Gale Dx/Rx/DC Orders Clinical Impression: Debility, unspecified, Urinary tract infection, Dementia Prescriptions: No Action spironolactone 25 mg tablet 25 mg PO DAILY levothyroxine [Synthroid] 75 mcg tablet 75 mcg PO DAILY losartan 50 mg tablet 50 mg PO BID escitalopram oxalate 5 mg tablet 5 mg PO DAILY amlodipine 10 mg tablet 10 mg PO DAILY mirtazapine 15 mg tablet 15 mg PO DAILY aripiprazole 10 mg tablet 10 mg PO DAILY memantine 5 mg tablet 5 mg PO BID docusate sodium [Colace] 100 mg capsule 100 mg PO DAILY Qty: 20 0RF Primary Care Provider: Isaiah Haile Referrals: Isaiah Haile MD [Primary Care Provider] - Disposition Disposition: Acute Care Hospital [facility]
--- NOTE | 2022-09-21 11:05 | CT_ITS ---
STUDY: CT BRAIN WITHOUT CONTRAST REASON FOR EXAM: Female, 86 years old. Weakness. Increased falls and weakness. RADIATION DOSAGE (If Supplied By Facility): CTDIvol = ( 44.99 ) mGy, DLP = ( 812.98 ) mGycm TECHNIQUE: Transaxial CT imaging of the brain was performed without administration of intravenous contrast material. Individualized dose optimization techniques were used for this CT. COMPARISON: Comparison is made with prior study in 09/10/2022. FINDINGS: Normal soft tissue structures. Normal calvarium. There is mild cerebral atrophy with widening of the extra-axial spaces and ventricular dilatation. There are areas of decreased attenuation within the white matter tracts of the supratentorial brain, consistent with microvascular disease changes. Normal basal ganglia and thalami. Normal brainstem. There is mild cerebellar atrophy. There is no intracranial hemorrhage. There are no findings of an acute ischemic infarction. Atherosclerotic calcification of the cavernous portions of the internal carotid arteries bilaterally. Normal visualized paranasal sinuses. CT/Brain/Head without Contrast IMPRESSION: Chronic involutional changes of the brain. Electronically Signed: Dougie Dove MD at 12:06 EST ,
[2022-09-21] MEDS: Acetaminophen 325 MG Tablet 650 MG PO (11:12)
--- NOTE | 2022-09-21 11:30 | RAD_ITS ---
STUDY: X-RAY CHEST REASON FOR EXAM: Female, 86 years old. Cough . Weakness. Increased falls. TECHNIQUE: Single AP portable view of the chest. COMPARISON: Comparison is made with prior study 08/16/2022. FINDINGS: EKG electrode are seen. The lungs are clear and expanded. There is no demonstrated pleural abnormality. Normal size heart. Normal mediastinum and nataliya. Normal visualized pulmonary arteries. There is atherosclerotic calcification of the aortic arch with tortuosity. There is demineralization of the osseous structures. Loss of height of the thoracic vertebrae. Normal visualized ribs, clavicles, and shoulders. Surgical clips are seen in the left upper quadrant. RAD/Chest 1 View (Portable) IMPRESSION: No acute abnormality is seen. Electronically Signed: Dougie Dove MD at 12:06 [facility] ,
[2022-09-21 11:34] LABS: Absolute Lymphocyte Count 1.03 X10^3/uL (0.83-4.51); Absolute Neutrophil Count 7.4 X10^3/uL (2.0-7.7); Basophil# 0.06 X10^3/uL; Basophil% 0.6 % (0-1); Hematocrit 38.1 % (37-47); Hemoglobin 12.8 g/dL (12.0-15.0); Lymphocyte # 1.03 X10^3/ul (0.83-4.51); Mean Corp Hgb Conc 33.6 g/dL (32-36); Mean Corpuscular Hgb 31.2 pg (27.0-32.0); Mean Corpuscular Volume 92.9 fL (81-99); Mean Platelet Vol. 10.9 fl (6.2-12.0); Monocyte# 0.76 X10^3/uL; Monocyte% 8.1 % (0-10); NRBC Flagged by Analyzer 0 % (0-5); Neutrophil # 7.44 X10^3/uL (2.7-7.7); Neutrophil % 79.9 % (47-70); Platelet Count 342 K/mm3 (150-450); RBC Distribution Width CV 13.2 % (11.6-14.6); RBC Distribution Width SD 45.3 fl (35.1-43.9); White Blood Count 9.3 K/mm3 (4.4-11.0)
[2022-09-21 11:53] LABS: AST(SGOT) 29 U/L (15-37); Alanine Aminotransfer ALT/SGPT 23 U/L (13-56); Albumin, Serum 3.2 g/dL (3.2-5.0); Alkaline Phosphatase 122 U/L (45-117); Anion Gap 6 (5-15); BUN 33 mg/dL (7-18); Calcium,Total 10.2 mg/dL (8.5-10.1); Chloride 105 mmol/L (98-107); Creatinine, Serum 1.03 mg/dL (0.55-1.02); EST Glomerular Filtration Rate 54 mL/min (>60); Est Glom Filt Rate - Afr Amer 65 mL/min (>60); Estimated Creatinine Clearance 30.13 ml/min; Globulin 3.2 g/dL (2.2-4.2); Glucose 96 mg/dL (74-106); Potassium 4.2 mmol/L (3.5-5.1); Protein, Total 6.4 g/dL (6.4-8.2); Sodium Level 138 mmol/L (136-145)
[2022-09-21 12:13] LABS: Mucous, Urine 0 SEEN /hpf (<or=2+)
[2022-09-21 12:15] VITALS: BP 135/64; PULSE 75; RESP 18; TEMP 36.4; O2SAT 97
[2022-09-21 12:16] LABS: Color, Urine Yellow (Yellow); Glucose, Dipstick Normal (Normal); Ketone-Dipstick 5 mg/dl (Negative); Leukocyte Esterase-Dipstick 25 /ul (Negative); Nitrite-Dipstick Negative (Negative); Occult Blood-Urine 10 /ul (Negative); Protein-Dipstick Negative (Negative); Urine Bilirubin Dipstick Negative (Negative); Urine Clarity Clear (Clear); Urine Urobilinogen 1 mg/dl (Normal)
--- NOTE | 2022-09-21 12:20 | CM.ED ---
Social Work Consult: No Primary Care Physician Referral source: Self referral This social sciences department chair met with patient in room. Introduced self and social sciences department chair role. Patient agreeable to speak with this social sciences department chair. This social sciences department chair broached topic of primary care physician. Patient confirms to not have a primary care doctor patient states I am stubborn and don't like to see doctors. This social sciences department chair educating patient on the importance of having a primary care doctor. Patient agreeable to this social sciences department chair providing patient with list of in-network primary care doctors that are local to patient geographical region. Patient voiced understanding and appeared to understand importance of seeing a having a primary care doctor established. Patient denies other community needs/concerns. No further services requested or indicated. Michelle EVANGELISTA, TELMA
[2022-09-21 12:31] LABS: White Blood Cells 10-25 SEEN /hpf (0-5)
[2022-09-21 12:32] LABS: Bacteria 1+ /hpf (None Seen); Red Blood Cells-Urine 5-10 SEEN /hpf (0-5); Squamous Epithelial Cells - UA 0-5 SEEN /hpf (5-10)
--- NOTE | 2022-09-21 12:55 | PCM.HP.STD ---
HPI - General General Date of Admission: 09/21/22 Date of Service: 09/21/22 Chief Complaint: 2 fall in the last 24 hours. 3 fall in the last 11 days and fourth time last 1 month. HPI Narrative CHARBEL DELVALLE, is a 86 F with history of advanced dementia [facility] was brought to ED for recurrent fall and not doing well. She has bruises in both lower legs. History is taken from the patient and the son, Mr. Kingsley Delvalle present in the room but she was aware. Her son wants her progression of service from assisted living to subacute rehab. She not had any fever or chills. On repeated questioning about symptoms of burning micturition she gave mixed answer as sometimes dysuria to me but she denied to nurse, Belle. UA shows LE 25 RBC 10-25 cells which is not very significant abnormal. Patient did not has acute change in mental status as she is has dementia, major depressive disorder with psychotic features as her chronic conditions. She said she did not had loss of consciousness. Patient evaluated and started on IV fluid, BUN 33/1.03, BUN/creatinine ratio 32. [facility] History Anxiety HTN (hypertension) Hypothyroid Syncope UTI (urinary tract infection) Home Medications levothyroxine 75 mcg tablet (Synthroid) 75 mcg PO DAILY THYROID 06/25/21 [History Last Taken 06/25/21] losartan 50 mg tablet 50 mg PO BID BP 06/25/21 [History Last Taken 06/25/21] spironolactone 25 mg tablet 25 mg PO DAILY FLUID 06/25/21 [History Last Taken 06/25/21] escitalopram oxalate 5 mg tablet 10 mg PO DAILY 08/05/21 [History Last Taken Unknown] amlodipine 10 mg tablet 10 mg PO DAILY 09/10/22 [History Last Taken Unknown] aripiprazole 10 mg tablet 15 mg PO DAILY 09/10/22 [History Last Taken Unknown] memantine 5 mg tablet 5 mg PO BID 09/10/22 [History Last Taken Unknown] mirtazapine 15 mg tablet 15 mg PO QHS 09/10/22 [History Last Taken Unknown] Allergy/AdvReac Type Severity Reaction Status Date / Time acetaminophen [From Vicodin] Allergy Other Verified 09/21/22 10:05 hydrocodone [From Vicodin] Allergy Other Verified 09/21/22 10:05 propoxyphene [From Darvon] Allergy Other Verified 09/21/22 10:05 Family History Other Heart disease Hypertension Surgical History H/O partial thyroidectomy History of appendectomy History of cholecystectomy Social History Smoking Status: Never smoker substance use type: does not use ROS ROS Narrative ROS mainly obtained by patient's son at the bedside. Patient does not remember her age date of , place. Reason why she is in [facility] ER. Patient did not have any fever. Chronically debilitated due to recurrent fall, generalized weakness. Has advanced dementia. No acute nausea, vomiting or abdominal pain or chest pain. No shortness of breath. Recurrent fall. Moves bowel in once in 2 to 3 days. Rest 14 ROS unobtainable because of advanced dementia or already mentioned in HPI Review of Systems ROS Unobtainable: due to mental condition and due to mental status Vital Signs Vital Signs Vital Signs: 09/21/22 10:01 09/21/22 11:22 09/21/22 12:15 Temperature 98.1 F 97.5 F L Temperature Source Temporal Oral Pulse Rate 90 75 Respiratory Rate 18 18 Respiratory Effort Normal Non-Labored Respiratory Pattern Normal Blood Pressure 139/57 H 135/64 H Blood Pressure Mean 84 87 Pulse Ox 98 97 Oxygen Delivery Method Room Air Weight Weight: 114 lb 10.246 oz Body Mass Index (BMI) 21.7 Physical Exam Narrative General: Awake, chronic dementia. Does not remember , age, place, time or situation. She knows her name. HEENT: Atraumatic, PERRLA, EOMI, Normocephalic Oral: No Gingival or Mucosal Lesions/ Ulcerations Neck: Supple, No JVD, Negative Carotid Bruits Lungs: Air entry diminished in bilateral lung bases. No crepitation/rhonchi Cardiovascular: Regular rate, Regular Rhythm, Normal S1, Normal S2, No murmurs Abdomen: Bowel Sounds Present, Soft, Non Tender, Non-Distended : Increased urgency to urinate, chronic urge incontinence. No renal angle tenderness. No suprapubic tenderness. Extremities: No edema, Capillary Refill Less than 3 Seconds Skin: Multiple bruises over lower legs. Musculoskeletal: Recurrent fall. Disequilibrium. No Tenderness to Palpation of Joints or Extremities Neurological: Cranial nerves II-XII grossly intact, DTR 2+/4, muscle strength 4+/5 at major joints Psych/Mental Status: Advanced dementia. Results Lab / Micro Data Result Diagrams: 09/21/22 11:20 09/21/22 11:20 Labs: Laboratory Results - last 24 hr 09/21/22 11:20: WBC 9.3, RBC 4.10 L, Hgb 12.8, Hct 38.1, MCV 92.9, MCH 31.2, MCHC 33.6, RDW Std Deviation 45.3 H, RDW Coeff of Shadia 13.2, Plt Count 342, MPV 10.9, Immature Gran % (Auto) 0.400, Neut % (Auto) 79.9 H, Lymph % (Auto) 11.0 L, Bann[place] % (Auto) 8.1, Eos % (Auto) 0.0, Baso % (Auto) 0.6, Absolute Neuts (auto) 7.4, Absolute Lymphs (auto) 1.03, Nucleated RBC % 0 09/21/22 11:20: Sodium 138, Potassium 4.2, Chloride 105, Carbon Dioxide 27.0, Anion Gap 6, BUN 33 H, Creatinine 1.03 H, Estim Creat Clear Calc 30.13, Est GFR (MDRD) Af Amer 65, Est GFR (MDRD) Non-Af 54 L, BUN/Creatinine Ratio 32.0 H, Glucose 96, Calcium 10.2 H, Total Bilirubin 0.50, AST 29, ALT 23, Alkaline Phosphatase 122 H, Total Protein 6.4, Albumin 3.2, Globulin 3.2, Albumin/Globulin Ratio 1.0 09/21/22 11:20: Lactic Acid 1.0 09/21/22 12:10: Urine Color Yellow, Urine Clarity Clear, Urine pH 5.0, Ur Specific Beaumont 1.020, Urine Protein Negative, Urine Glucose (UA) Normal, Urine Ketones 5 H, Urine Occult Blood 10 H, Urine Nitrite Negative, Urine Bilirubin Negative, Urine Urobilinogen 1 H, Ur Leukocyte Esterase 25 H, Urine RBC 5-10 SEEN, Urine WBC 10-25 SEEN, Ur Squamous Epith Cells 0-5 SEEN, Urine Bacteria 1+, Urine Mucus 0 SEEN Radiology Impression Brain CT 09/21/22 11:05 IMPRESSION: Chronic involutional changes of the brain. Electronically Signed: Dougie Dove MD at 12:06 EST , Chest X-Ray 09/21/22 11:30 IMPRESSION: No acute abnormality is seen. Electronically Signed: Dougie Dove MD at 12:06 EST , Assessment & Plan Assessment/Plan (1) Debility, unspecified: (2) Dementia: PLAN: Plan This is a 86-year-old female who is being admitted for recurrent fall 4 times in the last month, twice last 24 hours and obligation of nursing care. 1. Debility due to recurrent fall with multiple bruises in lower extremities: [facility] as an observation status. I talked to the son and explained anticipated hospital course. PT OT and caser consult. IV fluid normal saline +20 M EQ of potassium chloride for 1 L. 2. Unclear whether asymptomatic bacteriuria/acute cystitis: Patient history of lower urinary tract symptoms is not consistent. She does not seem to be acutely confused/altered mental status. Patient did have transient episode of confusion overnight.? Patient was alert and oriented on my examination and was mentating well.? Believe confusion was related to poor sleep hygiene while admitted.? Urine culture grew E. coli.? Abnormal UA on admission with positive nitrites, leukocyte esterase and 4+ bacteria.? Currently vital signs are stable and patient is afebrile.? There is no white count currently.? Plan; continue cefdinir 30 mg p.o. twice daily x5 days, follow-up with primary care provider within the next 2 weeks. 3. CKD stage IIIb: Patient BUN/creatinine slightly elevated than baseline. Creatinine 1.03, BUN 33. Baseline creatinine 0.9. On IV fluid normal saline as mentioned above. 4. Suspected severe malnutrition Dietitian consult ordered.? Recently started Lexapro and escitalopram.? Continue Ensure 4 times daily. 5. Hypertension: Pressure systolic blood pressure in 130s. Hold amlodipine as this can give orthostatic hypotension and might result into fall. Losartan 50 mg p.o. twice daily continued with holding parameters. 6. Hypothyroidism TSH within normal limits, continue Synthroid. 7. Major depressive disorder with psychotic features, anxiety and advanced dementia: Patient on omeprazole continued. Living will/advanced directive/end of life care: Patient does have living will or advanced directive. After discussion of benefits/risks procedures involved with full code, DNR CC arrest and DNR CC, the patient's son, Mr. Kingsley Delvalle opted for DNRCC arrest with no intubation. He said all family members are of same opinion of DNRCC arrest with no intubation. I further asked the patient and sister also said she wants to naturally pass away if time comes. Patient doesn't want artificial life support including intubation, tube feed, ventilator and/chest compression, central venous catheter, vasopressor and DC shock if needed Total time spent in [id number] encounter in discussion of advanced directive 16 minutes. Charges/Coding Visit Charges OBSV E&M: 78021 Initial observation care L3 Procedures Hospitalists Procedures: 22145 Advncd Care Plan 30 Min
--- NOTE | 2022-09-21 13:03 | CM.ED ---
Social Work Consult: long term placement Referral source: Dr. Gale Per Dr. Gale patient from the [facility] [place] and is currently in the Assisted Living. Dr. Gale recommending for patient to transition to senior living/skilled side of a senior living. This social sciences instructor met with patient and patient son, Thiago. Introduced self and social sciences instructor role. Patient laying in bed and not participating in conversation, patient appears to be confused and not oriented. Thiago reports to be patient Health Care Power of Grouter Helper. This social sciences instructor broached conversation of senior living placement for patient versus assisted living. Thiago agrees that patient requires more care then assisted living is able to provide for patient. Thiago reports to have been talking with dean of admissions at the [facility] about transitioning patient to skilled care. Thiago concerned about patient returning to assisted living today. This social sciences instructor to reach out to the [facility]. Thiago reports that patient other son, Mike Riley is also a health care power of civil rights attorney but Thiago is main contact is Aurelio lives out of town. Telephone call to the [facility] [place], Viak. Vika confirms above information and is recommending for patient to admit to acute care setting to be able to facilitate senior living placement for skilled care as patient has declined over the past month. This social sciences instructor updated Dr. Gale on above. Dr. Gale agreeable to admitting patient to acute care setting. This social sciences instructor spoke with Thiago in room, Thiago agreeable to admission and transitioning to senior living with the [facility] [place] being chcf home of choice. Social Work to continue to follow. Mcihelle EVANGELISTA, TELMA
[2022-09-21 13:05] VITALS: BP 135/46; PULSE 79; RESP 18; TEMP 36.4; O2SAT 98
--- NOTE | 2022-09-21 13:05 | NURSING ---
MED SURG OBS [facility] DEBILITY, UTI, DEMENTIA
[2022-09-21 13:40] LABS: Magnesium 1.8 mg/dL (1.6-2.6); Phosphorus 3.4 mg/dL (2.5-4.9)
[2022-09-21] MEDS: Ceftriaxone 1 GM/50 ML BAG IV (13:48)
[2022-09-21 15:14] VITALS: BP 117/57; PULSE 67; RESP 16; TEMP 36.8; O2SAT 97; BMI 20.9
[2022-09-21 15:37] VITALS: O2SAT 94
[2022-09-21] MEDS: 0.9% Normal Saline 1,000 ML 75 ML IV (16:27)
[2022-09-21] MEDS: Enoxaparin 30 MG/0.3 ML Syringe SC (18:21)
[2022-09-21 21:00] VITALS: BP 130/63; PULSE 72; RESP 16; TEMP 36.4; O2SAT 95
[2022-09-21] MEDS: Mirtazapine 15 MG Tablet PO (21:21)
[2022-09-21] MEDS: Ensure Plus High Protein 120 ML LIQUID PO (21:21)
[2022-09-21] MEDS: Losartan Potassium 50 MG Tablet PO (21:21)
[2022-09-21] MEDS: Memantine Hydrochloride 5 MG Tablet PO (21:21)
[2022-09-22 03:00] VITALS: BP 129/42; PULSE 63; RESP 14; TEMP 36.6; O2SAT 97
[2022-09-22 04:57] LABS: Absolute Lymphocyte Count 1.83 X10^3/uL (0.83-4.51); Basophil# 0.06 X10^3/uL; Basophil% 0.8 % (0-1); Eosinophil# 0.08 X10^3/uL; Hematocrit 35.8 % (37-47); Hemoglobin 11.1 g/dL (12.0-15.0); Lymphocyte # 1.83 X10^3/ul (0.83-4.51); Lymphocyte % 23.2 % (19-41); Mean Corpuscular Hgb 30.1 pg (27.0-32.0); Mean Platelet Vol. 11.1 fl (6.2-12.0); Monocyte# 0.94 X10^3/uL; Monocyte% 11.9 % (0-10); NRBC Flagged by Analyzer 0 % (0-5); Neutrophil # 4.95 X10^3/uL (2.7-7.7); Neutrophil % 62.7 % (47-70); Platelet Count 277 K/mm3 (150-450); RBC Distribution Width CV 13.2 % (11.6-14.6); RBC Distribution Width SD 47.8 fl (35.1-43.9); Red Blood Count 3.69 M/mm3 (4.2-5.4); White Blood Count 7.9 K/mm3 (4.4-11.0)
[2022-09-22 05:33] LABS: Anion Gap 7 (5-15); BUN 31 mg/dL (7-18); BUN/Creat Ratio 42.5 RATIO (10-20); Calcium,Total 8.7 mg/dL (8.5-10.1); Chloride 111 mmol/L (98-107); Creatinine, Serum 0.73 mg/dL (0.55-1.02); EST Glomerular Filtration Rate 80 mL/min (>60); Est Glom Filt Rate - Afr Amer 97 mL/min (>60); Estimated Creatinine Clearance 31.04 ml/min; Glucose 64 mg/dL (74-106); Potassium 3.9 mmol/L (3.5-5.1); Sodium Level 139 mmol/L (136-145)
[2022-09-22] MEDS: Levothyroxine 75 MCG Tablet PO (06:27)
[2022-09-22 07:41] VITALS: O2SAT 95
--- NOTE | 2022-09-22 08:57 | PCM.PN.HOSP ---
Subjective Subjective Seen and examined. Patient has dementia. No acute change noticed. Heart rate and blood pressure in normal limit. Objective Data Objective Data Vital Signs: Vital Signs Temp Pulse Resp BP Pulse Ox O2 Del Method 97.9 F 63 14 129/42 H 95 Room Air 09/22/22 03:00 09/22/22 03:00 09/22/22 03:00 09/22/22 03:00 09/22/22 07:41 09/22/22 07:41 Oxygen Delivery Method Room Air Weight: 111 lb 3.2 oz Body Mass Index (BMI) 20.9 Intake & Output: Intake and Output for Last 24 Hours 09/20/22 09/21/22 09/22/22 23:59 23:59 23:59 Intake Total 1300 / 1300 1000 / 1000 Output Total 150 / 450 400 / 400 Balance 1150 / 850 600 / 600 Lab / Micro Data Result Diagrams: 09/22/22 04:15 09/22/22 04:15 Labs: Laboratory Results - last 24 hr 09/21/22 11:20: WBC 9.3, RBC 4.10 L, Hgb 12.8, Hct 38.1, MCV 92.9, MCH 31.2, MCHC 33.6, RDW Std Deviation 45.3 H, RDW Coeff of Shadia 13.2, Plt Count 342, MPV 10.9, Immature Gran % (Auto) 0.400, Neut % (Auto) 79.9 H, Lymph % (Auto) 11.0 L, Anson % (Auto) 8.1, Eos % (Auto) 0.0, Baso % (Auto) 0.6, Absolute Neuts (auto) 7.4, Absolute Lymphs (auto) 1.03, Nucleated RBC % 0 09/21/22 11:20: Sodium 138, Potassium 4.2, Chloride 105, Carbon Dioxide 27.0, Anion Gap 6, BUN 33 H, Creatinine 1.03 H, Estim Creat Clear Calc 30.13, Est GFR (MDRD) Af Amer 65, Est GFR (MDRD) Non-Af 54 L, BUN/Creatinine Ratio 32.0 H, Glucose 96, Calcium 10.2 H, Total Bilirubin 0.50, AST 29, ALT 23, Alkaline Phosphatase 122 H, Total Protein 6.4, Albumin 3.2, Globulin 3.2, Albumin/Globulin Ratio 1.0 09/21/22 11:20: Lactic Acid 1.0 09/21/22 11:20: Phosphorus 3.4, Magnesium 1.8 09/21/22 12:10: Urine Color Yellow, Urine Clarity Clear, Urine pH 5.0, Ur Specific Gilbert 1.020, Urine Protein Negative, Urine Glucose (UA) Normal, Urine Ketones 5 H, Urine Occult Blood 10 H, Urine Nitrite Negative, Urine Bilirubin Negative, Urine Urobilinogen 1 H, Ur Leukocyte Esterase 25 H, Urine RBC 5-10 SEEN, Urine WBC 10-25 SEEN, Ur Squamous Epith Cells 0-5 SEEN, Urine Bacteria 1+, Urine Mucus 0 SEEN 09/22/22 04:15: WBC 7.9, RBC 3.69 L, Hgb 11.1 L, Hct 35.8 L, MCV 97.0, MCH 30.1, MCHC 31.0 L D, RDW Std Deviation 47.8 H, RDW Coeff of Shadia 13.2, Plt Count 277, MPV 11.1, Immature Gran % (Auto) 0.400, Neut % (Auto) 62.7, Lymph % (Auto) 23.2, Anson % (Auto) 11.9 H, Eos % (Auto) 1.0, Baso % (Auto) 0.8, Absolute Neuts (auto) 5.0, Absolute Lymphs (auto) 1.83, Nucleated RBC % 0 09/22/22 04:15: Sodium 139, Potassium 3.9, Chloride 111 H, Carbon Dioxide 21.0, Anion Gap 7, BUN 31 H, Creatinine 0.73, Estim Creat Clear Calc 31.04, Est GFR (MDRD) Af Amer 97, Est GFR (MDRD) Non-Af 80, BUN/Creatinine Ratio 42.5 H, Glucose 64 L, Calcium 8.7 Micro: Microbiology 09/21/22 12:10 Urine, Catheterized Urine Culture - Preliminary Culture exhibits no growth. Radiography Diagnostic Testing: Radiology Impression Brain CT 09/21/22 11:05 IMPRESSION: Chronic involutional changes of the brain. Electronically Signed: Dougie Dove MD at 12:06 EST , Chest X-Ray 09/21/22 11:30 IMPRESSION: No acute abnormality is seen. Electronically Signed: Dougie Dove MD at 12:06 EST , Physical Exam Narrative General: Awake, chronic dementia. Does not remember name, , age, place, time or situation. HEENT: Atraumatic, PERRLA, EOMI, Normocephalic Oral: No Gingival or Mucosal Lesions/ Ulcerations Neck: Supple, No JVD, Negative Carotid Bruits Lungs: Air entry diminished in bilateral lung bases. No crepitation/rhonchi Cardiovascular: Regular rate, Regular Rhythm, Normal S1, Normal S2, No murmurs Abdomen: Bowel Sounds Present, Soft, Non Tender, Non-Distended : Increased urgency to urinate, chronic urge incontinence. No renal angle tenderness. No suprapubic tenderness. Extremities: No edema, Capillary Refill Less than 3 Seconds Skin: Multiple bruises over lower legs. Musculoskeletal: Recurrent fall. Disequilibrium. No Tenderness to Palpation of Joints or Extremities Neurological: Cranial nerves II-XII grossly intact, DTR 2+/4, muscle strength 4+/5 at major joints Psych/Mental Status: Advanced dementia. Assessment & Plan Assessment/Plan (1) Debility, unspecified: (2) Dementia: PLAN: Plan This is a 86-year-old female who is being admitted for recurrent fall 4 times in the last month, twice last 24 hours and obligation of nursing care. 1. Debility due to recurrent fall with multiple bruises in lower extremities: Patient is being admitted on [facility] floor as an observation status. I talked to the son and explained anticipated hospital course. PT OT and family preservation caseworker consult. IV fluid normal saline +20 M EQ of potassium chloride for 1 L. 2. Asymptomatic bacteriuria, cystitis/UTI ruled out: Patient history of lower urinary tract symptoms is not consistent. She does not seem to be acutely confused/altered mental status. UA showed 11-25, nitrite negative, 1+ bacteria but urine culture preliminary no growth. Yesterday, on multiple questioning patient denied burning micturition therefore discontinue IV antibiotic, ceftriaxone. 3. CKD stage IIIb: Patient BUN/creatinine slightly elevated than baseline. Creatinine 1.03, BUN 33. Baseline creatinine 0.9. On IV fluid normal saline as mentioned above. 4. Suspected severe malnutrition Dietitian consult ordered.? Continue Lexapro and escitalopram.? Continue Ensure 4 times daily. 5. Hypertension: Pressure systolic blood pressure in 130s. Hold amlodipine as this can give orthostatic hypotension and might result into fall. Losartan 50 mg p.o. twice daily continued with holding parameters. 6. Hypothyroidism TSH within normal limits, continue Synthroid. 7. Major depressive disorder with psychotic features, anxiety and advanced dementia: Patient on omeprazole continued. Living will/advanced directive/end of life care: Patient does have living will or advanced directive. After discussion of benefits/risks procedures involved with full code, DNR CC arrest and DNR CC, the patient's son, Mr. Kingsley Riley opted for DNRCC arrest with no intubation. He said all family members are of same opinion of DNRCC arrest with no intubation. I further asked the patient and sister also said she wants to naturally pass away if time comes. Patient doesn't want artificial life support including intubation, tube feed, ventilator and/chest compression, central venous catheter, vasopressor and DC shock if needed Charges/Coding Visit Charges OBSV E&M: 37096 Subsequent observation care L2
--- NOTE | 2022-09-22 10:09 | CASEMGMT ---
Social work SW received phone call from pt son, Thiago. Thiago discussed with SW that family is now considering a fdc placement and prefers [facility] vs. [facility] as they initially discussed yesterday. Thiago asked if this SW could send referral to [facility] for pt to be skilled and then family would work with SNF to transition to intermediate care. Thiago declined list of SNF providers including quality and resource use data and consistent with the patient?s preferred geographic region, medical needs, and insurance network from the [facility] Guide. SW informed Dixie Dickson, discharge occupational therapist's assistant, of pt/family choice. Dixie to send referral to [facility]. PLAN: [facility], pending acceptance and precert BELEN Leonard
--- NOTE | 2022-09-22 10:12 | CASEMGMT ---
IRENE MAY spoke with pt son Thiago Riley at [phone] to discuss SNOW form. IRENE MAY explained SNOW form, patient son voiced understanding. Pt son gave verbal consent for understanding of form and filed in chart. Pt provided with a copy of signed SNOW form. Patient son had no further questions or concerns at this time.
--- NOTE | 2022-09-22 10:13 | CASEMGMT ---
Discharge Delivery Table Operator This pattern chart writer sent referral to [facility] via [facility]. Keara MIR Homicide Squad Captain
[2022-09-22 10:30] VITALS: BP 111/52; PULSE 76; RESP 16; TEMP 37; O2SAT 97
[2022-09-22] MEDS: Losartan Potassium 50 MG Tablet PO ×2 (10:36→20:53)
[2022-09-22] MEDS: Spironolactone 25 MG Tablet PO (10:36)
[2022-09-22] MEDS: ARIPiprazole 5 MG Tablet 15 MG PO (10:36)
[2022-09-22] MEDS: Escitalopram Oxalate 10 MG Tablet PO (10:37)
[2022-09-22] MEDS: Enoxaparin 30 MG/0.3 ML Syringe SC (10:37)
[2022-09-22] MEDS: Memantine Hydrochloride 5 MG Tablet PO ×2 (10:37→20:53)
[2022-09-22] MEDS: FLU VACC QS2022-23(6MOS UP)/PF 60 MCG/0.5 ML SYRINGE IM (10:38)
[2022-09-22] MEDS: Ensure Plus High Protein 120 ML LIQUID PO ×3 (10:55→20:52)
[2022-09-22] MEDS: Ceftriaxone 1 GM/50 ML BAG IV (11:13)
--- NOTE | 2022-09-22 13:07 | CASEMGMT ---
Discharge Elastic Cutter This underwriter sent OT notes to Shira at [facility] via [facility]. When PT comes avaliable this underwriter will send those as well. Keara MIR Aviation Electrical Technician
[2022-09-22 13:50] VITALS: BP 119/53; PULSE 74; RESP 16; TEMP 36.7; O2SAT 97
[2022-09-22 13:51] VITALS: BP 119/53; PULSE 74; RESP 18; TEMP 36.7; O2SAT 97
[2022-09-22 20:00] VITALS: BP 157/72; PULSE 72; RESP 16; TEMP 36.6; O2SAT 96
[2022-09-22] MEDS: Mirtazapine 15 MG Tablet PO (20:53)
[2022-09-23] VITALS (7 sets, daily range): BP systolic 133–153; BP diastolic 52–72; PULSE 75–79; RESP 14–18; TEMP 36.3–36.9; O2SAT 94–96
[2022-09-23] MEDS: Levothyroxine 75 MCG Tablet PO (07:07)
--- NOTE | 2022-09-23 07:21 | PN_ITS ---
Subjective Subjective Day #2 ceftriaxone for suspected urinary tract infection AF VSS - systolic was a little high through the night. Maintaining appropriate oxygen saturation on RA Oral intake is poor Discussed with nursing - no problems that need addressed Medication list reviewed. All labs personally reviewed. White blood cell count yesterday was normal and the differential was unremarkable. FBS was only 64 yesterday. BUN is elevated at 33 and the creat was 0.73. Urine culture from 11/21/2021 is no growth. Pt is a 76 YO female with advanced dementia, behavioral disturbances and frequent falls. She has been living in assisted living and the plan is for a SNF/ECF unit at [place]......she would most likely do best in a memory unit. PT and OT notes from yesterday were reviewed. Required multiple physical and verbal cues to ambulate/pivot. she walked 12' with a WW and had a retro lean. When I entered the room she was sitting in the recliner and appeared to be in no distress. She could tell me her name but, not her age, the year, the month, or where she is. The SW is working on getting her transferred to [place]. she denies Abd pain, nausea, sore throat, cough, SOB and CP. She is confused and does not know why she is here in the hospital. Objective Data Objective Data Vital Signs: Vital Signs Temp Pulse Resp BP Pulse Ox O2 Del Method 97.4 F L 79 14 153/72 H 95 Room Air 09/23/22 02:03 09/23/22 02:03 09/23/22 02:03 09/23/22 02:03 09/23/22 02:03 09/23/22 02:03 Oxygen Delivery Method Room Air Weight: 113 lb 13.9 oz Body Mass Index (BMI) 20.9 Intake & Output: Intake and Output for Last 24 Hours 09/21/22 09/22/22 09/23/22 23:59 23:59 23:59 Intake Total 1300 / 1300 1400 / 1400 Output Total 150 / 450 700 / 950 600 / 600 Balance 1150 / 850 700 / 450 -600 / -600 Lab / Micro Data Result Diagrams: 09/22/22 04:15 09/22/22 04:15 Micro: Microbiology 09/21/22 12:10 Urine, Catheterized Urine Culture - Preliminary Culture exhibits no growth. Physical Exam Const alert and no apparent distress General Appearance: cooperative Orientation / Consciousness: confused HEENT Mouth: dry mucous membranes Eyes PERRL and EOMs intact bilaterally Eyes Narrative: She is making good eye contact with me while we are talking. Neck supple and No nodes Resp normal respiratory effort Resp Narrative: breathing is not labored and she has no conversational dyspnea. BS's are di minished.....poor resp effort. No crackles, rales or rhonchi appreciated. Effort and Inspection: Negative for tachypneic Cardio regular rhythm Cardio Narrative: frequent ectopy. No MM appreciated and no gallops GI normal to inspection, nondistended, normoactive bowel sounds and soft to palpation GI Narrative: No guarding with palpation. Extremity no calf tenderness General Extremity: Negative for edema Skin Rashes: no rashes Assessment & Plan Assessment/Plan (1) Debility, unspecified: PLAN: due to progressive dementia with some behavioral disturbance. Having frequent falls recently. (2) Dementia: (3) Urinary tract infection: PLAN: ruled out. urine and blood cultures are negative. (4) Falls frequently: PLAN: Plan She needs placed in an ECF or a memory unit. She was very peasant with me and talkative. I think she would do well in a memory unit. She is not able to care for herself and should have 24/7 supervision. Charges/Coding Visit Charges Inpatient E&M: 26726 Subs Hosp L2
--- NOTE | 2022-09-23 07:58 | CASEMGMT ---
Discharge Supervisor Assembly Stock This mortgage loan underwriter sent PT notes to Shira at [place]. Keara MIR Bellman
[2022-09-23] MEDS: ARIPiprazole 5 MG Tablet 15 MG PO (08:55)
[2022-09-23] MEDS: Memantine Hydrochloride 5 MG Tablet PO ×2 (08:55→21:32)
[2022-09-23] MEDS: Enoxaparin 30 MG/0.3 ML Syringe SC (08:55)
[2022-09-23] MEDS: Spironolactone 25 MG Tablet PO (08:55)
[2022-09-23] MEDS: Escitalopram Oxalate 10 MG Tablet PO (08:55)
[2022-09-23] MEDS: Losartan Potassium 50 MG Tablet PO ×2 (08:55→21:32)
[2022-09-23] MEDS: Ensure Plus High Protein 120 ML LIQUID PO ×3 (08:55→21:30)
[2022-09-23] MEDS: Ceftriaxone 1 GM/50 ML BAG IV (10:05)
--- NOTE | 2022-09-23 10:29 | CASEMGMT ---
Social Work Telephone call from patient son, Thiago. Thiago inquired about status of patient referral to [facility]. This social work case manager updated Thiago that therapy notes where sent this morning and to be waiting to hear back from [facility] on whether or not they are accepting patient. Thiago states I know the director there, Thiago plans to reach out to the director. Will continue to follow. Michelle EVANGELISTA, SHIRAZ-S
--- NOTE | 2022-09-23 12:09 | CASEMGMT ---
Discharge Branch Coordinator This designer writer called Shira at [facility] and left a voicemail and sent a message in [facility] in regards to status of referral. Will follow up. Keara MIR Drama Teacher
--- NOTE | 2022-09-23 12:56 | CASEMGMT ---
Discharge Senior Manager Mmcoe Alex Sy reached out. Patient has been declined due to no bed at this time. MERRITT Martinez notified. Keara MIR Sanitation Lead
--- NOTE | 2022-09-23 13:25 | CASEMGMT ---
Social Work Telephone call discharge manager business planning, Dixie. Dixie updated this social work assistant that patient has been denied for [facility] due to not having any beds on the memory care unit. Telephone call to patient son, Thiago. Thiago updated on above information. Thiago reports to be surprised by this as I talked to the director and I thought we where good. Thiago plans to speak with the director at [facility] and then reach out to family. Thiago plans to call this social work assistant back with preference for nursing facility. PLAN: [facility] facility. Michelle EVANGELISTA, TELMA
--- NOTE | 2022-09-23 15:06 | CASEMGMT ---
Social Work Notified by discharge planning assistance, Dixie that [facility] might have a bed now. Nii to get back to Dixie. Will continue to follow. Michelle EVANGELISTA, TELMA
--- NOTE | 2022-09-23 15:31 | CASEMGMT ---
Social Work Telephone call from discharge strategic planning specialist, Dixie. Patient has been denied [facility] again as they continue to not be able to accommodate. Telephone call to patient son, Thiago. This social services technician updated Thiago on above information. Thiago states to now want the [facility]. Telephone call to discharge planning assistance, Dixie. Dixie to send referral to the [facility]. PLAN: [facility], skilled. Michelle EVANGELISTA, SHIRAZ-S
--- NOTE | 2022-09-23 15:38 | CASEMGMT ---
Discharge Camp Housekeeper This automatic typewriter inspector sent referral to [facility] via [facility]. [facility] accepted patient and will start pre-cert. MERRITT Martinez notified. Keara MIR Staff Certified Nurse Midwife
[2022-09-23] MEDS: 0.9% Saline Lock 10 ML Syringe IV (21:31)
[2022-09-23] MEDS: Mirtazapine 15 MG Tablet PO (21:32)
[2022-09-24] VITALS (8 sets, daily range): BP systolic 107–156; BP diastolic 61–73; PULSE 73–80; RESP 16–18; TEMP 36.3–36.8; O2SAT 95–99
[2022-09-24] MEDS: Levothyroxine 75 MCG Tablet PO (05:38)
[2022-09-24] MEDS: Spironolactone 25 MG Tablet PO (10:23)
[2022-09-24] MEDS: Losartan Potassium 50 MG Tablet PO ×2 (10:23→20:27)
[2022-09-24] MEDS: Enoxaparin 30 MG/0.3 ML Syringe SC (10:23)
[2022-09-24] MEDS: Escitalopram Oxalate 10 MG Tablet PO (10:23)
[2022-09-24] MEDS: Memantine Hydrochloride 5 MG Tablet PO ×2 (10:23→20:27)
[2022-09-24] MEDS: ARIPiprazole 5 MG Tablet 15 MG PO (10:23)
[2022-09-24] MEDS: Ensure Plus High Protein 120 ML LIQUID PO ×4 (10:25→20:30)
--- NOTE | 2022-09-24 14:15 | PN.HOSP_ITS ---
Objective Data Objective Data Vital Signs: Vital Signs Temp Pulse Resp BP Pulse Ox O2 Del Method 97.8 F 73 16 145/61 H 99 Room Air 09/24/22 07:53 09/24/22 07:53 09/24/22 07:53 09/24/22 07:53 09/24/22 07:53 09/24/22 08:22 Oxygen Delivery Method Room Air Weight: 110 lb 14.28 oz Body Mass Index (BMI) 20.9 Intake & Output: Intake and Output for Last 24 Hours 09/22/22 09/23/22 09/24/22 23:59 23:59 23:59 Intake Total 1400 / 1400 900 / 900 200 / 200 Output Total 700 / 950 1550 / 1550 300 / 300 Balance 700 / 450 -650 / -650 -100 / -100 Lab / Micro Data Result Diagrams: 09/22/22 04:15 09/22/22 04:15 Micro: Microbiology 09/21/22 12:45 Blood Culture (Wb) - Anticubital Right Blood Culture - Preliminary No growth in 48 hours. 09/21/22 11:20 Blood Culture (Wb) - Anticubital Right Blood Culture - Preliminary No growth in 48 hours. 09/21/22 12:10 Urine, Catheterized Urine Culture - Final Culture exhibits no growth. Physical Exam Narrative General: Awake, chronic dementia. Does not remember name, , age, place, time or situation. HEENT: Atraumatic, PERRLA, EOMI, Normocephalic Oral: No Gingival or Mucosal Lesions/ Ulcerations Neck: Supple, No JVD, Negative Carotid Bruits Lungs: Air entry diminished in bilateral lung bases. No crepitation/rhonchi Cardiovascular: Regular rate, Regular Rhythm, Normal S1, Normal S2, No murmurs Abdomen: Bowel Sounds Present, Soft, Non Tender, Non-Distended : Increased urgency to urinate, chronic urge incontinence. No renal angle tenderness. No suprapubic tenderness. Extremities: No edema, Capillary Refill Less than 3 Seconds Skin: Multiple bruises over lower legs. Musculoskeletal: Recurrent fall. Disequilibrium. No Tenderness to Palpation of Joints or Extremities Neurological: Cranial nerves II-XII grossly intact, DTR 2+/4, muscle strength 4+/5 at major joints Psych/Mental Status: Advanced dementia. Assessment & Plan Assessment/Plan (1) Debility, unspecified: (2) Dementia: PLAN: Plan This is a 86-year-old female who is being admitted for recurrent fall 4 times in the last month, twice last 24 hours and obligation of nursing care. 1.? Debility due to recurrent fall with multiple bruises in lower extremities: Patient is being admitted on [facility] floor as an observation status.? I talked t o the son and explained anticipated hospital course.? PT OT and telephonic case manager consult.? IV fluid normal saline +20 M EQ of potassium chloride for 1 L. 09/24: Pending pre-CERT. Continue PT and OT. 2.? Asymptomatic bacteriuria, cystitis/UTI ruled out: Patient's history of lower urinary tract symptoms is not consistent.? She does not seem to be acutely confused/altered mental status.? UA showed 11-25, nitrite negative, 1+ bacteria? but urine culture preliminary no growth.? Yesterday, on multiple questioning patient denied burning micturition therefore discontinue IV antibiotic, ceftriaxone. 3.? CKD stage IIIb: Patient BUN/creatinine slightly elevated than baseline.? Creatinine 1.03, BUN 33.? Baseline creatinine 0.9.? On IV fluid normal saline as mentioned above. 09/24: Kidney function at baseline. 4.? Suspected severe malnutrition Dietitian consult reviewed.? Continue Lexapro and escitalopram.? Continue Ensure 4 times daily. 5. ? Hypertension: Pressure systolic blood pressure in 130s.? Hold amlodipine as this can give orthostatic hypotension and might result into fall.? Losartan 50 m g p.o. twice daily continued with holding parameters. 6.? Hypothyroidism TSH within normal limits, continue Synthroid. 7.? Major depressive disorder with psychotic features, anxiety and advanced dem entia: Patient on omeprazole continued. Living will/advanced directive/end of life care: Patient does? have living will or advanced directive.? After discussion of benefits/risks procedures involved with? full code, DNR CC arrest and DNR CC, the patient's son, Mr. Kingsley Riley opted for DNRCC arrest with no intubation.? He said all family members are of same opinion of DNRCC arrest with no intubation.? I further asked the patient and sister also said she wants to naturally pass away if time comes. Patient? doesn't want artificial life support including intubation, tube feed, ventilator and/chest compression, central venous catheter, vasopressor and DC shock if needed Charges/Coding Visit Charges Inpatient E&M: 31983 Subs Hosp L2
[2022-09-24] MEDS: Mirtazapine 15 MG Tablet PO (20:27)
[2022-09-25] VITALS (8 sets, daily range): BP systolic 106–122; BP diastolic 35–59; PULSE 66–82; RESP 16–20; TEMP 36.5–37.2; O2SAT 91–96
[2022-09-25] MEDS: Levothyroxine 75 MCG Tablet PO (05:30)
--- NOTE | 2022-09-25 07:24 | PN.HOSP_ITS ---
Subjective Subjective Feels well. Objective Data Objective Data Vital Signs: Vital Signs Temp Pulse Resp BP Pulse Ox O2 Del Method 36.8 C 66 20 H 111/35 L 91 Room Air 09/25/22 03:00 09/25/22 03:00 09/25/22 03:00 09/25/22 03:00 09/25/22 03:00 09/25/22 03:00 Oxygen Delivery Method Room Air Weight: 48.2 kg Body Mass Index (BMI) 20.9 Intake & Output: Intake and Output for Last 24 Hours 09/23/22 09/24/22 09/25/22 23:59 23:59 23:59 Intake Total 900 / 900 320 / 320 Output Total 1550 / 1550 300 / 300 Balance -650 / -650 Lab / Micro Data Result Diagrams: 09/22/22 04:15 09/22/22 04:15 Micro: Microbiology 09/21/22 12:45 Blood Culture (Wb) - Anticubital Right Blood Culture - Preliminary No growth in 48 hours. 09/21/22 11:20 Blood Culture (Wb) - Anticubital Right Blood Culture - Prelim inary No growth in 48 hours. 09/21/22 12:10 Urine, Catheterized Urine Culture - Final Culture exhibits no growth. Physical Exam Const alert and no apparent distress Resp normal respiratory effort and no retractions Cardio regular rate, regular rhythm, S1 normal heart sound and S2 normal heart sound GI normal to inspection, nondistended, normoactive bowel sounds and soft to palpation Neuro Sensorium / Orientation: awake and alert Assessment & Plan Assessment/Plan (1) Debility, unspecified: PLAN: Debility due to recurrent fall with multiple bruises in lower extremities: Patient is being admitted on [facility] floor as an observation status.? I talked to the son and explained anticipated hospital course.? PT OT and social work case manager consult.? IV fluid normal saline +20 M EQ of potassium chloride for 1 L. 09/24: Pending pre-CERT. Continue PT and OT. PLAN: Plan Asymptomatic bacteriuria, cystitis/UTI ruled out: Patient's history of lower urinary tract symptoms is not consistent.? She does not seem to be acutely confused/altered mental status.? UA showed 11-25, nitrite negative, 1+ bacteria? but urine culture preliminary no growth.? Yesterday, on multiple questioning patient denied burning micturition therefore discontinue IV antibiotic, ceftriaxone. Chronic conditions: * CKD stage IIIb: Patient BUN/creatinine slightly elevated than baseline.? Creatinine 1.03, BUN 33.? Baseline creatinine 0.9.? On IV fluid normal saline as mentioned above. 09/24: Kidney function at baseline. * Suspected severe malnutrition: Dietitian consult reviewed.? Continue Lexapro and escitalopram.? Continue Ensure 4 times daily. * Hypertension: Pressure systolic blood pressure in 130s.? Hold amlodipine as this can give orthostatic hypotension and might result into fall.? Losartan 50 mg p.o. twice daily continued with holding parameters. * Hypothyroidism: TSH within normal limits, continue Synthroid. * Major depressive disorder with psychotic features, anxiety and advanced dementia: Patient on omeprazole continued. Living will/advanced directive/end of life care: Patient does? have living will or advanced directive.? After discussion of benefits/risks procedures involved with? full code, DNR CC arrest and DNR CC, the patient's son, Mr. Kingsley Riley opted for DNRCC arrest with no intubation.? He said all family members are of same opinion of DNRCC arrest with no intubation.? I further asked the patient and sister also said she wants to naturally pass away if time comes. Patient? doesn't want artificial life support including intubation, tube feed, ventilator and/chest compression, central venous catheter, vasopressor and DC shock if needed Disposition: pending insurance authorization. Charges/Coding Visit Charges OBSV E&M: 50219 Subsequent observation care L2
[2022-09-25] MEDS: ARIPiprazole 5 MG Tablet 15 MG PO (09:24)
[2022-09-25] MEDS: Escitalopram Oxalate 10 MG Tablet PO (09:24)
[2022-09-25] MEDS: Ensure Plus High Protein 120 ML LIQUID PO ×4 (09:24→21:01)
[2022-09-25] MEDS: Spironolactone 25 MG Tablet PO (09:24)
[2022-09-25] MEDS: Enoxaparin 30 MG/0.3 ML Syringe SC (09:25)
[2022-09-25] MEDS: Memantine Hydrochloride 5 MG Tablet PO ×2 (09:25→21:01)
[2022-09-25] MEDS: Ibuprofen 400 MG Tablet PO (15:43)
[2022-09-25] MEDS: Mirtazapine 15 MG Tablet PO (21:01)
[2022-09-25] MEDS: Losartan Potassium 50 MG Tablet PO (21:01)
[2022-09-25] MEDS: Menthol/Lanolin/Calamine/Znox 113 GM Tube 1 APPLIC TOPICAL (22:14)
[2022-09-26 02:00] VITALS: BP 142/45; PULSE 71; RESP 18; TEMP 36.4; O2SAT 96
[2022-09-26] MEDS: Levothyroxine 75 MCG Tablet PO (06:04)
[2022-09-26] MEDS: Menthol/Lanolin/Calamine/Znox 113 GM Tube 1 APPLIC TOPICAL ×2 (06:04→13:53)
--- NOTE | 2022-09-26 08:10 | CASEMGMT ---
Discharge Child Care Education Coordinator Vika reached out. Pre-cert has been obtained. [facility] to [facility] when medically ready. Keara MIR Biofuels Plant Operations Engineer
[2022-09-26 08:56] VITALS: BP 124/61; PULSE 77; RESP 18; TEMP 36.8; O2SAT 98
[2022-09-26 08:57] VITALS: BP 124/61; PULSE 77; RESP 18; TEMP 36.8; O2SAT 98
[2022-09-26] MEDS: Escitalopram Oxalate 10 MG Tablet PO (08:58)
[2022-09-26] MEDS: Memantine Hydrochloride 5 MG Tablet PO (08:59)
[2022-09-26] MEDS: Spironolactone 25 MG Tablet PO (08:59)
[2022-09-26] MEDS: ARIPiprazole 5 MG Tablet 15 MG PO (08:59)
[2022-09-26] MEDS: Enoxaparin 30 MG/0.3 ML Syringe SC (08:59)
[2022-09-26] MEDS: Ensure Plus High Protein 120 ML LIQUID PO ×2 (09:03→13:52)
[2022-09-26 10:13] VITALS: O2SAT 95
--- NOTE | 2022-09-26 10:17 | CASEMGMT ---
Social work MERRITT updated Dr. Rodriguez of percert being obtained. plans to discharge pt today. MERRITT also called pt son, Thiago. Thiago made aware that pt will discharge today now that insurance auth has been obtained. Thiago stated family may possibly be able to transport pt to [facility]. Thiago to discuss with brother and call SW back with plan. PLAN: [facility]
--- NOTE | 2022-09-26 11:26 | PCM.TXEXTCAR ---
Diet Diet Order/Speech Therapy: 09/22/22 10:36 Diet: Regular - No Added Salt Food consistency:: Regular Liquid Consistency:: Regular/Thin Is pt able to select menu?: No Routine Orders/Code Status Code Status: DNRCC-A (no intubatoin) Therapies Weight Bearing: Full weight bearing Physical Therapy: Eval and Treat Occupational Therapy: Eval and Treat Problem/Diagnosis (1) Debility, unspecified: Status: Acute Code(s): R53.81 - Other malaise Plan: Debility due to recurrent fall with multiple bruises in lower extremities: [facility] observation status.? I talked to the son and explained anticipated hospital course.? PT OT and case management associate consult.? IV fluid normal saline +20 M EQ of potassium chloride for 1 L. 09/24: Pending pre-CERT. Continue PT and OT. Plan Asymptomatic bacteriuria, cystitis/UTI ruled out: Patient's history of lower urinary tract symptoms is not consistent.? She does not seem to be acutely confused/altered mental status.? UA showed 11-25, nitrite negative, 1+ bacteria? but urine culture preliminary no growth.? Yesterday, on multiple questioning patient denied burning micturition therefore discontinue IV antibiotic, ceftriaxone. Chronic conditions: CKD stage IIIb: Patient BUN/creatinine slightly elevated than baseline.? Creatinine 1.03, BUN 33.? Baseline creatinine 0.9.? On IV fluid normal saline as mentioned above. 09/24: Kidney function at baseline. Suspected severe malnutrition: Dietitian consult reviewed.? Continue Lexapro and escitalopram.? Continue Ensure 4 times daily. Hypertension: Pressure systolic blood pressure in 130s.? Hold amlodipine as this can give orthostatic hypotension and might result into fall.? Losartan 50 mg p.o. twice daily continued with holding parameters. Hypothyroidism: TSH within normal limits, continue Synthroid. Major depressive disorder with psychotic features, anxiety and advanced dementia: Patient on omeprazole continued. Living will/advanced directive/end of life care: Patient does? have living will or advanced directive.? After discussion of benefits/risks procedures involved with? full code, DNR CC arrest and DNR CC, the patient's son, Mr. Kingsley Riley opted for DNRCC arrest with no intubation.? He said all family members are of same opinion of DNRCC arrest with no intubation.? I further asked the patient and sister also said she wants to naturally pass away if time comes. Patient? doesn't want artificial life support including intubation, tube feed, ventilator and/chest compression, central venous catheter, vasopressor and DC shock if needed Disposition: pending insurance authorization. Allergies/Procedures Done in Hospital Allergies acetaminophen [From Vicodin] Allergy (Verified 09/21/22 10:05) Other hydrocodone [From Vicodin] Allergy (Verified 09/21/22 10:05) Other propoxyphene [From Darvon] Allergy (Verified 09/21/22 10:05) Other Procedures: None Type of Care/Length of Stay Estimated LOS: Convalescent Care Less Than 30 days Type of Care Needed: Skilled Rehab Potential: Fair Prognosis: Good Additional Orders/Day of Discharge Day of Discharge: 09/26/22 Dietary and Speech Recommendations Dietitian Recommendations/Changes: RD will liberalize diet to ZOEY diet to manage medical conditions. Continue 120mL Ensure Plus High Protein 4x daily with medpass. Discharge Plan Admission Admit Date/Time: 09/21/22 12:53 Primary Reason for Your Visit: Debility Attending Provider: Liban Rodriguez Primary Care Provider: Isaiah Haile Consulting Providers: Shaw Varghese Discharge Orders/Prescriptions Prescriptions: New ibuprofen 400 mg Tablet 400 mg PO Q4 PRN (Reason: Pain 1-10 Or Fever) Qty: 14 0RF Ensure Plus High Protein 0.08 gram-1.5 kcal/mL Liquid 120 ml PO 4X/DAY Qty: 237 0RF Continued spironolactone 25 mg tablet 25 mg PO DAILY levothyroxine [Synthroid] 75 mcg tablet 75 mcg PO DAILY losartan 50 mg tablet 50 mg PO BID escitalopram oxalate 5 mg tablet 10 mg PO DAILY amlodipine 10 mg tablet 10 mg PO DAILY mirtazapine 15 mg tablet 15 mg PO QHS aripiprazole 10 mg tablet 15 mg PO DAILY memantine 5 mg tablet 5 mg PO BID Referrals / Follow Up: Isaiah Haile MD [Primary Care Provider] - Within 2 Weeks Disposition Disposition (needs filled in before D/C Order can be placed): Shelter Facility
--- NOTE | 2022-09-26 11:30 | DS.PCM_ITS ---
Providers Date of Admission: 09/21/22 Primary Care Physician: Dr. Isaiah Haile MD Reason For Visit: RECURRENT FALL Diagnosis Discharge Diagnosis (1) Debility, unspecified: Status: Acute Code(s): R53.81 - Other malaise Plan: Debility due to recurrent fall with multiple bruises in lower extremities: Patient is being admitted on [facility] floor as an observation status.? I talked to the son and explained anticipated hospital course.? PT OT and protective services case worker consult.? IV fluid normal saline +20 M EQ of potassium chloride for 1 L. 09/24: Pending pre-CERT. Continue PT and OT. 09/26: DC to [facility] Plan Asymptomatic bacteriuria, cystitis/UTI ruled out: Patient's history of lower urinary tract symptoms is not consistent.? She does not seem to be acutely confused/altered mental status.? UA showed 11-25, nitrite negative, 1+ bacteria? but urine culture preliminary no growth.? Yesterday, on multiple questioning patient denied burning micturition therefore discontinue IV antibiotic, ceftriaxone. Chronic conditions: * CKD stage IIIb: Patient BUN/creatinine slightly elevated than baseline.? Creatinine 1.03, BUN 33.? Baseline creatinine 0.9.? On IV fluid normal saline as mentioned above. 09/24: Kidney function at baseline. * Suspected severe malnutrition: Dietitian consult reviewed.? Continue Lexapro and escitalopram.? Continue Ensure 4 times daily. * Hypertension: Pressure systolic blood pressure in 130s.? Hold amlodipine as this can give orthostatic hypotension and might result into fall.? Losartan 50 mg p.o. twice daily continued with holding parameters. * Hypothyroidism: TSH within normal limits, continue Synthroid. * Major depressive disorder with psychotic features, anxiety and advanced dementia: Patient on omeprazole continued. Living will/advanced directive/end of life care: Patient does? have living will or advanced directive.? After discussion of benefits/risks procedures involved with? full code, DNR CC arrest and DNR CC, the patient's son, Mr. Kingsley Riley opted for DNRCC arrest with no intubation.? He said all family members are of same opinion of DNRCC arrest with no intubation.? I further asked the patient and sister also said she wants to naturally pass away if time comes. Patient? doesn't want artificial life support including intubation, tube feed, ventilator and/chest compression, central venous catheter, vasopressor and DC shock if needed Disposition: pending insurance authorization. Medications at Discharge Home Medications levothyroxine 75 mcg tablet (Synthroid) 75 mcg PO DAILY THYROID 06/25/21 losartan 50 mg tablet 50 mg PO BID BP 06/25/21 spironolactone 25 mg tablet 25 mg PO DAILY FLUID 06/25/21 escitalopram oxalate 5 mg tablet 10 mg PO DAILY mood 08/05/21 amlodipine 10 mg tablet 10 mg PO DAILY bp 09/10/22 aripiprazole 10 mg tablet 15 mg PO DAILY mood 09/10/22 memantine 5 mg tablet 5 mg PO BID dementia 09/10/22 mirtazapine 15 mg tablet 15 mg PO QHS mood 09/10/22 food supplemt, lactose-reduced 0.08 gram-1.5 kcal/mL oral liquid (Ensure Plus High Protein) 120 ml PO 4X/DAY #237 mL 09/26/22 ibuprofen 400 mg tablet 400 mg PO Q4 PRN Pain 1-10 Or Fever #14 tabs 09/26/22 Hospital Course Operations None Procedures None Summary of Care Provided Minutes Spent on Discharge: 28 Physical Exam Const alert Constitutional Narrative: up in chair. Resp normal respiratory effort, no retractions, no use of accessory muscles and clear to auscultation bilaterally Cardio regular rate, regular rhythm, S1 normal heart sound and S2 normal heart sound GI normal to inspection, nondistended, normoactive bowel sounds, soft to palpation, non-tender and non-distended Weight / BMI Weight Weight: 49.3 kg Body Mass Index (BMI) 20.9 ABG / Lab / Microbiology Data Result Diagrams: 09/22/22 04:15 09/22/22 04:15 Microbiology: Microbiology 09/21/22 12:45 Blood Culture (Wb) - Anticubital Right Blood Culture - Preliminary No growth in 48 hours. 09/21/22 11:20 Blood Culture (Wb) - Anticubital Right Blood Culture - Preliminary No growth in 48 hours. 09/21/22 12:10 Urine, Catheterized Urine Culture - Final Culture exhibits no growth. Meaningful Use Info Meaningful Use Diagnoses (Choose all that apply): None applicable Discharge Plan Admission Admit Date/Time: 09/21/22 12:53 Primary Reason for Your Visit: Debility Attending Provider: Liban Rodriguez Primary Care Provider: Isaiah Haile Consulting Providers: Shaw Varghese Discharge Orders/Prescriptions Prescriptions: New ibuprofen 400 mg Tablet 400 mg PO Q4 PRN (Reason: Pain 1-10 Or Fever) Qty: 14 0RF Ensure Plus High Protein 0.08 gram-1.5 kcal/mL Liquid 120 ml PO 4X/DAY Qty: 237 0RF Continued spironolactone 25 mg tablet 25 mg PO DAILY levothyroxine [Synthroid] 75 mcg tablet 75 mcg PO DAILY losartan 50 mg tablet 50 mg PO BID escitalopram oxalate 5 mg tablet 10 mg PO DAILY amlodipine 10 mg tablet 10 mg PO DAILY mirtazapine 15 mg tablet 15 mg PO QHS aripiprazole 10 mg tablet 15 mg PO DAILY memantine 5 mg tablet 5 mg PO BID Referrals / Follow Up: Isaiah Haile MD [Primary Care Provider] - Within 2 Weeks Disposition Disposition (needs filled in before D/C Order can be placed): Custodial Facility Charges/Coding Visit Charges OBSV E&M: 48390 Observation care discharge
--- NOTE | 2022-09-26 11:53 | PHA.DC.MR ---
Pharmacy Service has performed discharge medication reconciliation for this patient. The patient's discharge medication list was reviewed for discrepancies and discrepancies were resolved. Home Medications levothyroxine 75 mcg tablet (Synthroid) 75 mcg PO DAILY THYROID 06/25/21 losartan 50 mg tablet 50 mg PO BID BP 06/25/21 spironolactone 25 mg tablet 25 mg PO DAILY FLUID 06/25/21 escitalopram oxalate 5 mg tablet 10 mg PO DAILY mood 08/05/21 amlodipine 10 mg tablet 10 mg PO DAILY bp 09/10/22 aripiprazole 10 mg tablet 15 mg PO DAILY mood 09/10/22 memantine 5 mg tablet 5 mg PO BID dementia 09/10/22 mirtazapine 15 mg tablet 15 mg PO QHS mood 09/10/22 food supplemt, lactose-reduced 0.08 gram-1.5 kcal/mL oral liquid (Ensure Plus High Protein) 120 ml PO 4X/DAY #237 mL 09/26/22 ibuprofen 400 mg tablet 400 mg PO Q4 PRN Pain 1-10 Or Fever #14 tabs 09/26/22
--- NOTE | 2022-09-26 11:56 | CASEMGMT ---
Social Work? MERRITT notified pt and pt family of discharge to [facility] today. MERRITT completed [facility] convalescent form in [employer]. Pt son, Thiago, will transport pt to SNF. MERRITT faxed all discharge orders to [facility] and notified that son would be transporting pt. MERRITT made copies of discharge orders and placed on pt chart. Sent original orders in envelope with pt upon discharge.?? Disposition: [facility], [facility], convalescent, level of care? [facility]
[2022-09-26 13:54] VITALS: BP 125/57; PULSE 77; RESP 18; TEMP 36.6; O2SAT 100
== END 2022-09-26 15:28 ==
LOC: ED 13:00 → MS3 13:09
PROVIDERS: Admitting Provider Internal Medicine; Emergency Provider Emergency Medicine; PCP Family Medicine
DX: R53.81 Other malaise (principal); F03.90 Unspecified dementia, unspecified severity, without behavioral disturbance, psychotic disturbance, mood disturbance, and anxiety; N18.31 Chronic kidney disease, stage 3a; R82.71 Bacteriuria; R53.1 Weakness; I12.9 Hypertensive chronic kidney disease with stage 1 through stage 4 chronic kidney disease, or unspecified chronic kidney disease; E03.9 Hypothyroidism, unspecified; F32.A Depression, unspecified; Z79.899 Other long term (current) drug therapy; Z23 Encounter for immunization; Z79.890 Hormone replacement therapy
CPT/HCPCS: 36415; 70450; 71045; 80048; 80053; 81001; 83605; 83735; 84100; 85025; 87040; 87086; 87426; 96361; 96365; 96366; 96372; 97116; 97162; 97166; 97530; 97535; 99218; 99251; 99285; G0008; J7030; J7040; P9612; 90686; A4216; G0378; G0463